=== PATIENT | female | born 1960 | race American Indian/Alaskan Native ===

== ENCOUNTER → 2016-10-16 | Outpatient (CLI) | payer BC ==
[2016-10-16 07:01] LABS: EKG EKG PERFORMED
[2016-10-16 07:08] LABS: CH 29.4; CHCM 32.2; HCT 39.9 % (34.0-46.0); HDW 2.63; HGB 12.7 gm/dL (11.4-16.0); MCH 29.1 pg (25.0-35.0); MCHC 31.8 g/dL (31.0-37.0); MCV 91.7 fL (80.0-100.0); Mean Platelet Volume 7.2; RBC 4.36 m/uL (3.80-5.40); RDW 14.1 % (11.5-15.5); WBC 7.3 k/uL (3.8-10.6)
[2016-10-16 07:25] LABS: ALT 42 U/L (9-52); AST 27 U/L (14-36); Alkaline Phosphatase 135 U/L (38-126); Anion Gap 11 mmol/L; Blood Urea Nitrogen 14 mg/dL (7-17); Calcium 9.5 mg/dL (8.4-10.2); Carbon Dioxide 27 mmol/L (22-30); Chloride 106 mmol/L (98-107); Cholesterol 194 mg/dL (<200); Glucose 109 mg/dL (74-99); HDL Cholesterol 39 mg/dL (40-60); Non-African American GFR(MDRD) >60 (>60 ml/min/1.73 sqM); Potassium 4.3 mmol/L (3.5-5.1); Sodium 144 mmol/L (137-145); Total Bilirubin 0.8 mg/dL (0.2-1.3); Total Protein 7.9 g/dL (6.3-8.2); Triglycerides 161 mg/dL (<150)
[2016-10-16 08:17] LABS: Hemoglobin A1C 5.6 % (4.2-6.1)
== END | disposition home or self-care (01) ==
LOC: LABWHC1 06:42
PROVIDERS: ATTEND Family Medicine
DX: Z00.00 Encounter for general adult medical examination without abnormal findings (principal)
CPT/HCPCS: 36415; 80053; 80061; 82306; 83036; 84439; 84443; 85027; 93005

== ENCOUNTER → 2016-10-18 | Outpatient (CLI) | payer BC ==
--- NOTE | 2016-10-18 16:13 | US ---
EXAMINATION TYPE: US kidneys/renal and bladder DATE OF EXAM: 10/18/2016 3:55 PM COMPARISON: NONE CLINICAL HISTORY: N28.1 Kidney Cyst. Cyst seen on CT EXAM MEASUREMENTS: Right Kidney: 10.5 x 4.3 x 5.0 cm Left Kidney: 9.9 x 5.0 x 5.0 cm TECHNOLOGIST IMPRESSION: Right Kidney: No hydronephrosis or masses seen Left Kidney: exophytic cyst measuring 1.0 x 0.9 x 1.4 cm This does not meet the criteria of a simple cyst. Bladder: wnl Bilateral Jets seen: Yes IMPRESSION: EXOPHYTIC, 1.4 CM CYST ARISING FROM THE LOWER POLE OF THE LEFT KIDNEY DOES NOT MEET THE REQUIREMENTS OF A SIMPLE CYST. FURTHER INTERROGATION WITH MRI WOULD BE SUGGESTED.
== END | disposition home or self-care (01) ==
LOC: RADUSWWP 15:31
PROVIDERS: ATTEND Family Medicine
DX: N28.1 Cyst of kidney, acquired (principal)
CPT/HCPCS: 76770

== ENCOUNTER → 2016-11-23 | Outpatient (CLI) | payer BC | LOC: LABWHC1 08:27 | PROVIDERS: ATTEND Orthopaedic Surgery | DX: M25.572 Pain in left ankle and joints of left foot (principal); M72.2 Plantar fascial fibromatosis | CPT/HCPCS: 36415; 82306; 85652; 86140 ==

== ENCOUNTER → 2016-11-27 | Outpatient (CLI) | payer BC ==
--- NOTE | 2016-11-28 11:02 | MM ---
Reason for exam: screening (asymptomatic). Last mammogram was performed 1 year ago. History: Patient is postmenopausal and has history of other cancer at age 30. Physical Findings: A clinical breast exam by your physician is recommended on an annual basis and results should be correlated with mammographic findings. MG 3D Screening Mammo W/Cad Bilateral CC and MLO view(s) were taken. Prior study comparison: November 27, 2015, bilateral MG 3d screening mammo w/cad. November 25, 2014, bilateral MG screening mammo w CAD. The breast tissue is almost entirely fat. There is no discrete abnormality. No significant changes when compared with prior studies. ASSESSMENT: Negative, BI-RAD 1 RECOMMENDATION: Routine screening mammogram of both breasts in 1 year.
== END | disposition home or self-care (01) ==
LOC: RADMAMWWP 09:13
PROVIDERS: ATTEND Family Medicine
DX: Z12.31 Encounter for screening mammogram for malignant neoplasm of breast (principal)
CPT/HCPCS: 77063; G0202

== ENCOUNTER → 2017-02-19 | Outpatient (CLI) | payer BC ==
[2017-02-19 11:51] LABS: Hemoglobin A1C 5.5 % (4.2-6.1)
== END | disposition home or self-care (01) ==
LOC: LABWHC1 06:38
PROVIDERS: ATTEND Family Medicine
DX: H35.00 Unspecified background retinopathy (principal)
CPT/HCPCS: 36415; 83036

== ENCOUNTER → 2017-03-05 | Outpatient (CLI) | payer BC ==
--- NOTE | 2017-03-19 07:19 | ENG ---
DATE OF SERVICE: VNG REPORT VNG INDICATIONS: A 56-year-old female with onset of vertigo 3 months ago, sudden and improving, coming in spells lasting 2 to 3 seconds at a time. Medications listed including alprazolam, atenolol, ibuprofen. VNG FINDINGS: Saccade shows intact peak velocities, accuracies, and latencies. Gaze with fixation shows no nystagmus in any of the directions of gaze including centrally with vision denied. Tracking shows no significant breakups. Opticokinetic nystagmus shows no asymmetry. Static position testing of 6 positions with eyes opened and then with vision denied shows no nystagmus. Jono-Hallpike maneuvers are negative bilaterally. Caloric testing shows bilateral weakness. Indeterminant. NOTE: Patient with reconstructive surgery left year 1982. VNG IMPRESSION: This VNG is limited due to bilateral weak caloric responses. Another test such as head thrust test or if available active and passive rotation testing is required to confirm presence of bilateral vestibular weakness. Other features of this VNG are unremarkable. There are no indications for central nervous system dysfunction. No electrodiagnostic evidence for benign positional vertigo on [place]-Hallpike maneuver today. No nystagmus encountered during testing.
== END | disposition home or self-care (01) ==
LOC: NEUROMAIN 08:34
PROVIDERS: ATTEND Otolaryngology
DX: R42 Dizziness and giddiness (principal)
CPT/HCPCS: 92537; 92540

== ENCOUNTER → 2017-04-02 | Outpatient (CLI) | payer BC ==
--- NOTE | 2017-04-02 15:09 | CT ---
EXAMINATION TYPE: CT iac wo/w con DATE OF EXAM: 04/02/2017 COMPARISON: NONE HISTORY: Dizziness x6 months. CT DLP: 300.0 mGycm Automated exposure control for dose reduction was used. CONTRAST: CT scan of the IACs is performed with IV Contrast, patient injected with 100 mL of Omnipaque 300. FINDINGS: The external auditory canals are patent bilaterally. Mastoid air cells show no evidence of abnormal opacification bilaterally. The middle ear ossicles are symmetric and unremarkable. There is no evidence of suspicious surrounding soft tissue density to suggest cholesteatoma. The scutum is preserved bilaterally. The cochlea and the semicircular canals are symmetric and unremarkable. Ves tibular aqueduct and internal carotid canal appear unremarkable. Temporomandibular joints are mainta ined bilaterally. Mild chronic mucosal thickening. IMPRESSION: No significant abnormality seen to account for patient's symptoms.
== END | disposition home or self-care (01) ==
LOC: RADCTMAIN 14:38
PROVIDERS: ATTEND Otolaryngology
DX: H93.19 Tinnitus, unspecified ear (principal); H91.90 Unspecified hearing loss, unspecified ear; R42 Dizziness and giddiness
CPT/HCPCS: 70482; Q9967

== ENCOUNTER → 2017-04-09 | Outpatient (CLI) | payer BC ==
[2017-04-09 08:55] LABS: Basophils # (A) 0.1 k/uL (0-0.2); Basophils % (A) 1 %; CH 29.1; CHCM 32.5; Eosinophils # (A) 0.3 k/uL (0-0.7); Eosinophils % (A) 4 %; HCT 41.1 % (34.0-46.0); HDW 2.64; HGB 13.7 gm/dL (11.4-16.0); Luc # (Auto) 0.17; Luc % (Auto) 2; Lymphocytes # (A) 1.8 k/uL (1.0-4.8); Lymphocytes % (A) 24 %; MCH 29.9 pg (25.0-35.0); MCHC 33.2 g/dL (31.0-37.0); MCV 89.9 fL (80.0-100.0); Mean Platelet Volume 6.8; Monocytes # (A) 0.5 k/uL (0-1.0); Monocytes % (A) 7 %; Neutrophils # (A) 4.7 k/uL (1.3-7.7); Neutrophils % (A) 62 %; RBC 4.58 m/uL (3.80-5.40); RDW 14.5 % (11.5-15.5); WBC 7.6 k/uL (3.8-10.6)
[2017-04-09 09:18] LABS: ALT 30 U/L (9-52); AST 25 U/L (14-36); Alkaline Phosphatase 143 U/L (38-126); Anion Gap 11 mmol/L; Blood Urea Nitrogen 15 mg/dL (7-17); Calcium 9.5 mg/dL (8.4-10.2); Carbon Dioxide 26 mmol/L (22-30); Chloride 104 mmol/L (98-107); Cholesterol 207 mg/dL (<200); Glucose 107 mg/dL (74-99); HDL Cholesterol 40 mg/dL (40-60); Non-African American GFR(MDRD) >60 (>60 ml/min/1.73 sqM); Potassium 4.6 mmol/L (3.5-5.1); Sodium 141 mmol/L (137-145); Total Protein 8.1 g/dL (6.3-8.2); Triglycerides 192 mg/dL (<150)
[2017-04-09 14:39] LABS: Hemoglobin A1C 5.8 % (4.2-6.1)
== END | disposition home or self-care (01) ==
LOC: LABWHC1 08:14
PROVIDERS: ATTEND Family Medicine
DX: E78.5 Hyperlipidemia, unspecified (principal); E55.9 Vitamin D deficiency, unspecified; I10 Essential (primary) hypertension; H35.00 Unspecified background retinopathy
CPT/HCPCS: 36415; 80053; 80061; 82306; 83036; 84439; 84443; 85025

== ENCOUNTER → 2017-04-25 | Outpatient (CLI) | payer BC ==
--- NOTE | 2017-04-25 07:40 | US ---
EXAMINATION TYPE: US abdomen comp/pelvis limited DATE OF EXAM: 04/25/2017 COMPARISON: US and CT CLINICAL HISTORY: Abd Pain R10.9. Generalized ABD pain EXAM MEASUREMENTS: Liver Length: 15.3 cm CBD: 0.4 cm Spleen: 9.4 cm Right Kidney: 10.7 x 4.8 x 4.4 cm Left Kidney: 11.4 x 4.7 x 4.5 cm Pancreas: wnl, tail obscured by overlying bowel gas Liver: Heterogeneous Gallbladder: Surgically absent CBD: wnl Spleen: wnl Right Kidney: wnl Left Kidney: Exophytic cyst, unchanged from previous= 1.1 x 0.9 x 1.0 cm Upper IVC: wnl Abd Aorta: wnl, no evidence of AAA Bladder: wnl Bilateral Jets Seen Yes Limited views of the pancreas are unremarkable. Liver is normal in size of biliary dilatation. The gallbladder is been removed. Distal common hepatic duct measures 4.4 mm. Spleen is normal in size. There is a 1.1 cm left ovarian cyst, unchanged from previous. The right kidney is normal. Visualized portions of aorta and IVC are normal. The bladder is unremarkable. Both ureteral jets are visualized. IMPRESSION: 1. STATUS POST CHOLECYSTECTOMY. 2. SIMPLE APPEARING LEFT RENAL CYST.
== END | disposition home or self-care (01) ==
LOC: RADUSWWP 06:54
PROVIDERS: ATTEND Family Medicine
DX: N28.1 Cyst of kidney, acquired (principal); Z90.49 Acquired absence of other specified parts of digestive tract
CPT/HCPCS: 76700; 76857

== ENCOUNTER → 2017-10-21 | Outpatient (CLI) | payer BC ==
--- NOTE | 2017-10-21 09:03 | CT ---
EXAMINATION TYPE: CT abdomen pelvis w con DATE OF EXAM: 10/21/2017 COMPARISON: NONE HISTORY: Epigastric pain CT DLP: 1199.50 mGycm CONTRAST: CT scan of the abdomen and pelvis is performed with Oral Contrast and with IV Contrast, patient injec stacey with 100 ml mL of Omnipaque 300. FINDINGS: LUNG BASES-: No visible nodule. No infiltrate. LIVER/GB: Cholecystectomy clips are in place. Mild hepatic steatosis noted. No space occupying hep atic lesion. Biliary tree is of normal caliber. PANCREAS: No inflammation. No distinct mass. SPLEEN: No splenic enlargement. No lesion seen. ADRENALS: Stable left fat-containing left adrenal nodule compatible with adenoma measuring 2.7 cm. No thickening. KIDNEYS/BLADDER: No hydronephrosis. No nephrolithiasis. Stable small exophytic lesion lower pole l eft kidney measuring 1.1 cm. Hounsfield unit measurement ranges between 3550 and. I cannot classify t his lesion is a cyst. Consider further evaluation with MRI. Cystic 1.2 cm lesion upper pole left kidn ey with Hounsfield unit measurement of approximately 20. Urinary bladder grossly unremarkable. BOWEL: Normal appendix. Normal bowel caliber. No inflammation. GENITAL ORGANS: No gross abnormality. LYMPH NODES: No greater than 1cm abdominal or pelvic lymph nodes are appreciated. AORTA: No significant abnormality. OSSEOUS STRUCTURES: Severe degenerative change lumbar spine.. OTHER: No significant additional abnormality is seen. IMPRESSION: 1. Stable small solid lesion lower pole left kidney. Consider further evaluation with MRI. 2. Mild hepatic steatosis. 3. Left adrenal adenoma.
== END | disposition home or self-care (01) ==
LOC: RADCTMAIN 07:09
PROVIDERS: ATTEND Internal Medicine Gastroenterology
DX: K76.0 Fatty (change of) liver, not elsewhere classified (principal); D35.02 Benign neoplasm of left adrenal gland; N28.9 Disorder of kidney and ureter, unspecified; R10.13 Epigastric pain
CPT/HCPCS: 74177; Q9967

== ENCOUNTER 2017-10-28 15:11 | Observation (INO) | payer BC ==
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
[2017-10-28] MEDS ORDERED: ASPIRIN 81 MG PO STA (16:28)
--- NOTE | 2017-10-28 17:33 | XR ---
EXAMINATION TYPE: XR chest 2V DATE OF EXAM: 10/28/2017 COMPARISON: 03/04/2016 HISTORY: Dysrhythmia difficulty breathing TECHNIQUE: Frontal and lateral views of the chest are obtained. FINDINGS: Heart is normal. There is no heart failure. There are chest leads. Costophrenic angles are clear. There is chronic density at the right cardiac border that is probably a large pericardial fat pad. Bony thorax is intact. IMPRESSION: No active cardiopulmonary disease. Normal heart. No change.
[2017-10-28 17:37] LABS: Basophils % (A) 0 %; Eosinophils # (A) 0.2 k/uL (0-0.7); Eosinophils % (A) 2 %; HCT 43.2 % (34.0-46.0); HGB 13.1 gm/dL (11.4-16.0); Hypochromasia Slight; Lymphocytes % (A) 23 %; MCH 28.9 pg (25.0-35.0); MCHC 30.4 g/dL (31.0-37.0); MCV 95.2 fL (80.0-100.0); Mean Platelet Volume 7.5; Monocytes # (A) 0.5 k/uL (0-1.0); Monocytes % (A) 6 %; Neutrophils # (A) 5.9 k/uL (1.3-7.7); Neutrophils % (A) 68 %; Platelet Count 275 k/uL (150-450); RBC 4.54 m/uL (3.80-5.40); RDW 14.9 % (11.5-15.5); WBC 8.7 k/uL (3.8-10.6)
[2017-10-28 17:46] LABS: Albumin 4.4 g/dL (3.5-5.0); Anion Gap 10 mmol/L; Carbon Dioxide 27 mmol/L (22-30); Chloride 104 mmol/L (98-107); Glucose 120 mg/dL (74-99); Potassium 4.5 mmol/L (3.5-5.1); Sodium 141 mmol/L (137-145); Total Protein 8.1 g/dL (6.3-8.2)
[2017-10-28 17:48] LABS: ALT 31 U/L (9-52); AST 36 U/L (14-36); Alkaline Phosphatase 134 U/L (38-126); Blood Urea Nitrogen 13 mg/dL (7-17); Calcium 9.6 mg/dL (8.4-10.2); Magnesium 2.2 mg/dL (1.6-2.3); Total Bilirubin 0.6 mg/dL (0.2-1.3)
[2017-10-28 17:56] LABS: Partial Thromboplastin Time 23.6 sec (22.0-30.0)
[2017-10-28] MEDS ORDERED: NALOXONE 0.4 MG/ML 1 ML VIAL IV PRN (19:18)
[2017-10-28 20:59] VITALS: BMI 34.0
[2017-10-28] MEDS ORDERED: ALPRAZolam 0.25 MG TAB PO PRN (21:22)
[2017-10-28] MEDS ORDERED: ACETAMINOPHEN TAB 500 MG TAB PO PRN (21:25)
[2017-10-28] MEDS ORDERED: HYDROmorphone 2 MG/ML 1 ML SYRINGE IM PRN (21:26)
[2017-10-28] MEDS ORDERED: ATENOLOL 25 MG TAB PO SCH (21:30)
[2017-10-29 07:48] VITALS: RESP 18; TEMP 98
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
--- NOTE | 2017-10-29 11:01 | ECHOF ---
Referral Reason:chest pain MEASUREMENTS -------- HEIGHT: 154.9 cm WEIGHT: 83.0 kg BP: IVSd: 1.1 cm (0.6 - 1.1) LVIDd: 3.3 cm (3.9 - 5.3) LVPWd: 1.1 cm (0.6 - 1.1) IVSs: 1.4 cm LVIDs: 1.8 cm LVPWs: 1.9 cm Ao Diam: 3.1 cm (2.0 - 3.7) AV Cusp: 2.2 cm (1.5 - 2.6) LA Diam: 3.2 cm (2.7 - 3.8) MV EXCURSION: 12.538 mm (> 18.000) MV EF SLOPE: 49 mm/s (70 - 150) EPSS: 0.7 cm MV E Saurabh: 0.90 m/s MV DecT: 279 ms MV A Saurabh: 0.87 m/s MV E/A Ratio: 1.03 RAP: 5.00 mmHg RVSP: 23.02 mmHg FINDINGS -------- Sinus rhythm. This was a technically good study. The left ventricular size is normal. Left ventricular wall thickness is normal. Overall left vent ricular systolic function is normal with, an EF between 55 - 60 %. The right ventricle is normal in size and function. The left atrium is normal in size. The right atrium is normal in size. The aortic valve is trileaflet, and appears structurally normal. No aortic stenosis or regurgitation. There is trace mitral regurgitation. Trace tricuspid regurgitation present. The right ventricular systolic pressure, as measured by Dopp ler, is 23.02mmHg. Pulmonic valve appears structurally normal. The aortic root size is normal. The pericardium is normal. CONCLUSIONS -------- 1. Sinus rhythm. 2. This was a technically good study. 3. The left ventricular size is normal. 4. Left ventricular wall thickness is normal. 5. Overall left ventricular systolic function is normal with, an EF between 55 - 60 %. 6. The right ventricle is normal in size and function. 7. The left atrium is normal in size. 8. The right atrium is normal in size. 9. The aortic valve is trileaflet, and appears structurally normal. No aortic stenosis or regurgitati on. 10. There is trace mitral regurgitation. 11. Trace tricuspid regurgitation present. 12. The right ventricular systolic pressure, as measured by Doppler, is 23.02mmHg. 13. Pulmonic valve appears structurally normal. 14. The aortic root size is normal. 15. The pericardium is normal. RETAIL SALES ADVISOR: Sallie Hernandez RDCS
--- NOTE | 2017-10-29 11:40 | ECHOS ---
STRESS ECHOCARDIOGRAM DATE OF SERVICE: 10/29/2017 INDICATION OF THE STUDY: Chest discomfort. MEDICATIONS: BASELINE HEART RATE: 73 BASELINE BLOOD PRESSURE: 144/79 MAXIMUM HEART RATE: 135 MAXIMUM BLOOD PRESSURE: 179/87 85% MPHR: 129 100% MPHR: 163 METS: 8.1 MAXIMUM STAGE REACHED: III TOTAL EXERCISE TIME: 6:54 CLINICAL INFORMATION: STRESS DATA: Pretesting physical examination showed a heart rate of 73, pressure is 144/79 mmHg. Baseline EKG showed sinus rhythm. The patient exercised on the treadmill according to Galo protocol for a total of 6 minutes and 54 seconds and achieved 8.1 METs. Max heart rate was 135, which is about 86% of maximum predicted heart rate. Maximum blood pressure was 179/87 mmHg. Clinically, the patient developed some shortness of breath with exertion. The EKG showed about [address]-segment depression during exercise and extended into recovery. ECHOCARDIOGRAM IMAGES: On echocardiogram images from parasternal long axis view, parasternal short axis view, apical 4 chamber view and apical 2 chamber view were obtained as a baseline images, at the peak of the heart rate as well as on recovery. The echocardiogram images showed good augmentation in the left ventricular systolic function without any evidence of wall motion abnormalities consistent with ischemia. CONCLUSION: 1. Good exercise capacity. 2. Mild EKG changes in response to exercise. 3. Normal echocardiogram in response to exercise. MMODL / IJN: [id number] /
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
[2017-10-29 11:47] VITALS: BP 136/59; PULSE 72
--- NOTE | 2017-10-29 14:08 | P.DS ---
Providers Date of admission: 10/28/17 19:18 Expected date of discharge: 10/29/17 Attending physician: Harsh Wagner Consults: 10/28/17 19:19 Consult Physician Routine Consulting Provider: Chava Marshall Consult Reason/Comments: Palpitations Do you want consulting provider notified?: Yes Primary care physician: Harsh Wagner [facility] Course: 57-year-old female who presented to the emergency room on 10/28/2017 with a chief complaint of palpitations. She states she was at home cleaning her bathroom and she began to feel a rapid fluttering sensation in her chest along with some mild chest pressure and shortness of breath. She states that she stopped cleaning and her chest pressure and shortness of breath subsided but she continued to experience palpitations. She also stated she had some lightheadedness and dizziness at that time. She denies nausea or vomiting. She called EMS and was transported to the hospital for further evaluation. The patient has a history of hypertension, cervical cancer, and anxiety. She is a former cigarette smoker and quit smoking in 2008. In the emergency room an EKG was completed revealing sinus mechanism. Chest x- ray was negative for an acute process. Laboratory data revealed hgb 13.1, plt 275, potassium 4.5, magnesium 2.2, creatinine 0.74. TSH 2.59. D-dimer was negative. Troponins were negative 3. school lunch monitor reveals bigeminy and trigeminy. She was admitted to the observation unit and consultations were placed to cardiology. Echocardiogram was completed revealing an ejection fraction of 55-60%, trace mitral regurgitation, and trace tricuspid regurgitation. Patient underwent stress test which was negative for ischemia. She was cleared for discharge from a cardiology standpoint. The patient was deemed stable for discharge. She is to follow up on an outpatient basis. Discharge diagnosis Chest pain, atypical, troponins negative 3, acute coronary event has been ruled out per cardiology Palpitations with bigeminy and trigeminy Essential hypertension Anxiety, unspecified Obesity: BMI 33.8 History of nicotine dependence, in remission, patient quit smoking cigarettes in 2008 Nurse practitioner note has been reviewed by physician. Signing provider agrees with the documented findings, assessment, and plan of care. Patient Condition at Discharge: Good Plan - Discharge Summary New Discharge Prescriptions: Continue Atenolol [Tenormin] 25 mg PO HS ALPRAZolam [Xanax] 0.25 mg PO BID PRN PRN Reason: Anxiety Cholecalciferol [Vitamin D3] 1,000 unit PO AC-SUPPER Clobetasol Propionate [Temovate 0.05% Cream] 1 applic TOPICAL BID Discharge Medication List Atenolol [Tenormin] 25 mg PO HS 03/15/14 [History] ALPRAZolam [Xanax] 0.25 mg PO BID PRN 09/03/17 [History] Cholecalciferol [Vitamin D3] 1,000 unit PO AC-SUPPER 09/03/17 [History] Clobetasol Propionate [Temovate 0.05% Cream] 1 applic TOPICAL BID 10/28/17 [ History] Follow up Appointment(s)/Referral(s): Chava Marshall MD [STAFF PHYSICIAN] - 3 Weeks Harsh Wagner DO [Primary Care Provider] - 1 Week Discharge Disposition: HOME SELF-CARE
[2017-10-30] MEDS ORDERED: PANTOPRAZOLE 40 MG TABLET PO SCH (07:30)
== END 2017-10-29 15:23 | disposition home or self-care (01) ==
LOC: EC 15:11 → 3OBS 19:18
PROVIDERS: ADMIT Family Medicine; ATTEND Family Medicine
DX: R07.89 Other chest pain (principal); R00.2 Palpitations; I10 Essential (primary) hypertension; F41.9 Anxiety disorder, unspecified; E66.9 Obesity, unspecified; Z68.33 Body mass index [BMI] 33.0-33.9, adult; Z87.891 Personal history of nicotine dependence; R00.8 Other abnormalities of heart beat; R42 Dizziness and giddiness; M79.622 Pain in left upper arm; R06.02 Shortness of breath; I49.9 Cardiac arrhythmia, unspecified; E78.5 Hyperlipidemia, unspecified; I08.1 Rheumatic disorders of both mitral and tricuspid valves; Z79.899 Other long term (current) drug therapy; Z85.41 Personal history of malignant neoplasm of cervix uteri; Z83.3 Family history of diabetes mellitus; Z82.61 Family history of arthritis; Z88.6 Allergy status to analgesic agent; Z88.8 Allergy status to other drugs, medicaments and biological substances; Z88.5 Allergy status to narcotic agent
CPT/HCPCS: 99285; 36415; 93005; 93017; 93306; 93350; 85379; 80053; 83735; 84443; 84484 ×2; 85025; 85610; 85730; 71046; G0378 ×2

== ENCOUNTER → 2017-11-24 | Outpatient (CLI) | payer BC ==
[2017-11-24 08:37] LABS: HCT 39.8 % (34.0-46.0); HGB 12.6 gm/dL (11.4-16.0); MCH 29.4 pg (25.0-35.0); MCHC 31.7 g/dL (31.0-37.0); MCV 92.7 fL (80.0-100.0); Mean Platelet Volume 6.8; Platelet Count 286 k/uL (150-450); RBC 4.29 m/uL (3.80-5.40); WBC 6.8 k/uL (3.8-10.6)
[2017-11-24 09:05] LABS: ALT 27 U/L (9-52); AST 23 U/L (14-36); Albumin 4.2 g/dL (3.5-5.0); Alkaline Phosphatase 139 U/L (38-126); Anion Gap 12 mmol/L; Blood Urea Nitrogen 15 mg/dL (7-17); Calcium 9.2 mg/dL (8.4-10.2); Carbon Dioxide 27 mmol/L (22-30); Chloride 105 mmol/L (98-107); Cholesterol 160 mg/dL (<200); Glucose 89 mg/dL (74-99); HDL Cholesterol 36 mg/dL (40-60); LDL Cholesterol,Calculated 90 mg/dL (0-99); Potassium 4.4 mmol/L (3.5-5.1); Sodium 144 mmol/L (137-145); Total Bilirubin 0.4 mg/dL (0.2-1.3); Total Protein 7.4 g/dL (6.3-8.2); Triglycerides 170 mg/dL (<150)
[2017-11-24 09:14] LABS: T4, Free (Free Thyroxine) 1.04 ng/dL (0.78-2.19)
[2017-11-24 18:47] LABS: Hemoglobin A1C 5.5 % (4.0-6.0)
== END | disposition home or self-care (01) ==
LOC: LABWHC1 08:11
PROVIDERS: ATTEND Family Medicine
DX: Z00.00 Encounter for general adult medical examination without abnormal findings (principal); I10 Essential (primary) hypertension; E78.5 Hyperlipidemia, unspecified; E55.9 Vitamin D deficiency, unspecified; H35.00 Unspecified background retinopathy
CPT/HCPCS: 36415; 80053; 80061; 82306; 83036; 84439; 84443; 85027

== ENCOUNTER 2017-12-05 16:58 | Emergency (ER) | payer BC ==
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
[2017-12-05 18:39] LABS: Basophils % (A) 0 %; Eosinophils % (A) 0 %; HCT 40.9 % (34.0-46.0); HGB 13.7 gm/dL (11.4-16.0); Lymphocytes # (A) 1.6 k/uL (1.0-4.8); Lymphocytes % (A) 17 %; MCH 29.7 pg (25.0-35.0); MCHC 33.4 g/dL (31.0-37.0); Mean Platelet Volume 6.7; Monocytes # (A) 0.5 k/uL (0-1.0); Monocytes % (A) 5 %; Neutrophils # (A) 7.3 k/uL (1.3-7.7); Neutrophils % (A) 77 %; Platelet Count 305 k/uL (150-450); RDW 14.1 % (11.5-15.5); WBC 9.5 k/uL (3.8-10.6)
--- NOTE | 2017-12-05 18:41 | XR ---
EXAMINATION TYPE: XR chest 2V DATE OF EXAM: 12/05/2017 COMPARISON: 10/28/2017 HISTORY: Tachycardia. Dizziness. TECHNIQUE: Frontal and lateral views of the chest are obtained. FINDINGS: Heart and mediastinum are within normal limits. Lungs are clear. Diaphragm is normal. Ther e are chest leads. Bony thorax is intact. IMPRESSION: Normal chest. Old right-sided healed rib fracture noted. No adverse change compared to o ld exam.
[2017-12-05 19:01] LABS: ALT 31 U/L (9-52); AST 24 U/L (14-36); Albumin 4.7 g/dL (3.5-5.0); Alkaline Phosphatase 169 U/L (38-126); Anion Gap 13 mmol/L; Blood Urea Nitrogen 16 mg/dL (7-17); Carbon Dioxide 27 mmol/L (22-30); Chloride 103 mmol/L (98-107); Glucose 110 mg/dL (74-99); Potassium 4.3 mmol/L (3.5-5.1); Sodium 143 mmol/L (137-145); Total Bilirubin 0.5 mg/dL (0.2-1.3); Total Protein 8.5 g/dL (6.3-8.2)
[2017-12-05 19:46] VITALS: TEMP 98
[2017-12-05 19:48] VITALS: BP 139/78; PULSE 68; RESP 20
== END 2017-12-05 19:46 | disposition home or self-care (01) ==
LOC: EC 16:58
DX: I49.3 Ventricular premature depolarization (principal); R06.02 Shortness of breath; R42 Dizziness and giddiness; I10 Essential (primary) hypertension; Z85.41 Personal history of malignant neoplasm of cervix uteri; Z87.891 Personal history of nicotine dependence; Z79.899 Other long term (current) drug therapy; Z79.52 Long term (current) use of systemic steroids; Z88.5 Allergy status to narcotic agent; Z88.8 Allergy status to other drugs, medicaments and biological substances; Z88.6 Allergy status to analgesic agent
CPT/HCPCS: 36415; 71046; 80053; 84484; 85025; 93005; 99285

== ENCOUNTER 2018-03-20 18:29 | Emergency (ER) | payer BC ==
[2018-03-20 18:52] VITALS: RESP 18
[2018-03-20] MEDS ORDERED: ASPIRIN 325 MG TAB PO STA (19:36)
[2018-03-20 20:06] LABS: Basophils # (A) 0.1 k/uL (0-0.2); Basophils % (A) 0 %; Eosinophils # (A) 0.2 k/uL (0-0.7); Eosinophils % (A) 2 %; HCT 39.1 % (34.0-46.0); HGB 12.6 gm/dL (11.4-16.0); Lymphocytes # (A) 1.9 k/uL (1.0-4.8); Lymphocytes % (A) 17 %; MCH 28.8 pg (25.0-35.0); MCHC 32.4 g/dL (31.0-37.0); Mean Platelet Volume 6.7; Monocytes # (A) 0.8 k/uL (0-1.0); Monocytes % (A) 7 %; Neutrophils # (A) 7.8 k/uL (1.3-7.7); Neutrophils % (A) 72 %; Platelet Count 262 k/uL (150-450); RBC 4.39 m/uL (3.80-5.40); RDW 14.5 % (11.5-15.5); WBC 10.8 k/uL (3.8-10.6)
--- NOTE | 2018-03-20 20:13 | XR ---
EXAMINATION TYPE: XR chest 2V DATE OF EXAM: 03/20/2018 COMPARISON: 12/05/2017 HISTORY: Short of breath TECHNIQUE: Frontal and lateral views of the chest are obtained. FINDINGS: Heart and mediastinum are normal. Lungs are clear. Diaphragm is normal. Bony thorax is int act. There are chest leads. IMPRESSION: Normal chest. No change.
[2018-03-20 20:14] LABS: Anion Gap 12 mmol/L; Blood Urea Nitrogen 16 mg/dL (7-17); Calcium 9.4 mg/dL (8.4-10.2); Carbon Dioxide 23 mmol/L (22-30); Chloride 107 mmol/L (98-107); Glucose 122 mg/dL (74-99); Potassium 3.9 mmol/L (3.5-5.1); Sodium 142 mmol/L (137-145)
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
[2018-03-20 21:22] VITALS: BP 126/60; PULSE 66; TEMP 97.4
== END 2018-03-20 21:22 | disposition home or self-care (01) ==
LOC: EC 18:29
DX: R00.2 Palpitations (principal); R06.02 Shortness of breath; I49.3 Ventricular premature depolarization; I10 Essential (primary) hypertension; Z85.41 Personal history of malignant neoplasm of cervix uteri; Z87.891 Personal history of nicotine dependence; Z79.52 Long term (current) use of systemic steroids; Z79.899 Other long term (current) drug therapy; Z88.5 Allergy status to narcotic agent; Z88.8 Allergy status to other drugs, medicaments and biological substances; Z88.6 Allergy status to analgesic agent
CPT/HCPCS: 36415; 71046; 80048; 83880; 84484; 85025; 85379; 93005; 99285

== ENCOUNTER → 2018-07-04 | Outpatient (CLI) | payer BC ==
[2018-07-04 09:14] LABS: HCT 40.1 % (34.0-46.0); HGB 13.2 gm/dL (11.4-16.0); MCH 29.8 pg (25.0-35.0); MCV 90.3 fL (80.0-100.0); Mean Platelet Volume 6.7; Platelet Count 291 k/uL (150-450); RBC 4.44 m/uL (3.80-5.40); RDW 14.6 % (11.5-15.5); WBC 7.6 k/uL (3.8-10.6)
[2018-07-04 09:35] LABS: ALT 25 U/L (9-52); AST 26 U/L (14-36); Albumin 4.3 g/dL (3.5-5.0); Alkaline Phosphatase 128 U/L (38-126); Anion Gap 9 mmol/L; Blood Urea Nitrogen 16 mg/dL (7-17); Calcium 9.4 mg/dL (8.4-10.2); Carbon Dioxide 29 mmol/L (22-30); Chloride 105 mmol/L (98-107); Cholesterol 218 mg/dL (<200); Glucose 99 mg/dL (74-99); HDL Cholesterol 41 mg/dL (40-60); LDL Cholesterol,Calculated 132 mg/dL (0-99); Potassium 4.3 mmol/L (3.5-5.1); Sodium 143 mmol/L (137-145); Total Bilirubin 0.6 mg/dL (0.2-1.3); Triglycerides 224 mg/dL (<150)
== END | disposition home or self-care (01) ==
LOC: LABWHC1 07:59
PROVIDERS: ATTEND Family Medicine
DX: I10 Essential (primary) hypertension (principal); E78.5 Hyperlipidemia, unspecified
CPT/HCPCS: 36415; 80053; 80061; 85027

== ENCOUNTER → 2018-07-29 | Outpatient (CLI) | payer BC ==
--- NOTE | 2018-07-29 13:49 | US ---
EXAMINATION TYPE: US carotid duplex BILAT DATE OF EXAM: 07/29/2018 COMPARISON: NONE CLINICAL HISTORY: I65.29 Carotid occlusion; lightheadedness EXAM MEASUREMENTS: RIGHT: Peak Systolic Velocity (PSV) cm/sec ----- Right CCA: 66.0 ----- Right ICA: 62.9 ----- Right ECA: 117.3 ICA/CCA ratio: 1.0 RIGHT: End Diastole cm/sec ----- Right CCA: 25.0 ----- Right ICA: 28.0 ----- Right ECA: 30.0 LEFT: Peak Systolic Velocity (PSV) cm/sec ----- Left CCA: 64.4 ----- Left ICA: 88.6 ----- Left ECA: 114.0 ICA/CCA ratio: 1.4 LEFT: End Diastole cm/sec ----- Left CCA: 22.6 ----- Left ICA: 35.8 ----- Left ECA: 28.4 VERTEBRALS (direction of flow): Right Vertebral: Antegrade Left Vertebral: Antegrade Rhythm: Normal IMPRESSION: Mild intimal wall changes noted at right carotid bifurcation and moderate intimal wall ch anges seen at left carotid bifurcation, but PSV is wnl bilaterally. Criteria for Assigning % of Stenosis / Diameter reduction (Estimation based on the indirect measurements of the internal carotid artery velocities (ICA PSV). 1. Normal (no stenosis)=ICA PSV < 125 cm/s: ratio < 2.0: ICA EDV<40 cm/s. 2. Less than 50% stenosis=ICA PSV < 125 cm/s: ratio < 2.0: ICA EDV<40 cm/s. 3. 50 to 69% stenosis=ICA PSV of 125 to 230 cm/s: ration 2.0 ? 4.0: ICA EDV 40-100 cm/s. 4. Greater than 70% stenosis to near occlusion= ICA PSV > 230 cm/s: ratio > 4.0: ICA EDV > 100 cm/s. 5. Near occlusion= ICA PSV velocities may be low or undetectable: variable ratio and ICA EDV. 6. Total occlusion=unable to detect flow.
== END | disposition home or self-care (01) ==
LOC: RADUSWWP 12:08
PROVIDERS: ATTEND Family Medicine
DX: R93.1 Abnormal findings on diagnostic imaging of heart and coronary circulation (principal)
CPT/HCPCS: 93880

== ENCOUNTER → 2019-01-04 | Outpatient (CLI) | payer BC ==
[2019-01-04 08:03] LABS: Basophils % (A) 1 %; Eosinophils # (A) 0.4 k/uL (0-0.7); Eosinophils % (A) 6 %; HCT 40.3 % (34.0-46.0); HGB 12.8 gm/dL (11.4-16.0); Lymphocytes # (A) 1.6 k/uL (1.0-4.8); Lymphocytes % (A) 25 %; MCH 28.5 pg (25.0-35.0); MCHC 31.7 g/dL (31.0-37.0); MCV 89.8 fL (80.0-100.0); Mean Platelet Volume 6.3; Monocytes # (A) 0.5 k/uL (0-1.0); Monocytes % (A) 7 %; Neutrophils # (A) 3.8 k/uL (1.3-7.7); Neutrophils % (A) 60 %; Platelet Count 258 k/uL (150-450); RBC 4.49 m/uL (3.80-5.40); RDW 14.3 % (11.5-15.5); WBC 6.4 k/uL (3.8-10.6)
[2019-01-04 16:56] LABS: T4, Free (Free Thyroxine) 1.1 ng/dL (0.80-1.80)
[2019-01-04 17:17] LABS: Hemoglobin A1C 5.8 % (4.0-6.0)
[2019-01-04 17:30] LABS: Albumin 4.4 g/dL (3.80-4.90); Albumin/Globulin Ratio 1.52 (1.60-3.17); Anion Gap 6.1 mmol/L (4.00-12.00); Calcium 9.6 mg/dL (8.7-10.3); Carbon Dioxide 29.9 mmol/L (21.6-31.8); Globulin 2.9 g/dL (1.6-3.3); Potassium 4.3 mmol/L (3.5-5.5); Total Bilirubin 0.8 mg/dL (0.3-1.2); Total Protein 7.3 g/dL (6.2-8.2)
== END | disposition home or self-care (01) ==
LOC: LABWHC1 07:18
PROVIDERS: ATTEND Family Medicine
DX: Z00.00 Encounter for general adult medical examination without abnormal findings (principal); E78.5 Hyperlipidemia, unspecified; I10 Essential (primary) hypertension; E55.9 Vitamin D deficiency, unspecified; R73.9 Hyperglycemia, unspecified
CPT/HCPCS: 36415; 80053; 80061; 82306; 83036; 84439; 84443; 85025

== ENCOUNTER → 2019-01-21 | Outpatient (CLI) | payer BC ==
--- NOTE | 2019-01-21 16:51 | US ---
EXAMINATION TYPE: US kidneys/renal and bladder DATE OF EXAM: 01/21/2019 COMPARISON: Correlation CT 10/21/2017 CLINICAL HISTORY: 58-year-old female N28.1 KIDNEY CYST. TECHNIQUE: Multiple sonographic images of the kidneys and bladder are obtained. FINDINGS: EXAM MEASUREMENTS: Right Kidney: 10.9 x 5.1 x 4.8 cm Left Kidney: 10.9 x 5.2 x 5.5 cm Post Void Residual Volume: Not performed Right Kidney: No hydronephrosis. Left Kidney: Hypoechoic area seen superiorly measurin.0 x 2.1 x 1.2 cm. Isoechoic area seen later al/inferiorly which may be adjacent to the left kidney measuring 2.0 x 1.7 x 0.9 cm (?exophytic). The patient's 10/21/2017 CT demonstrated a cortical lesion measuring 1.3 cm at the upper to midpole and a 1.2 cm cortical lesion at the mid to lower pole. Bladder: Appears wnl Bilateral Jets seen: Yes IMPRESSION: 1. No hydronephrosis. 2. Follow-up CT can be performed to reassess the left renal lesions. By ultrasound, they seem to hollie ure larger than measurements on prior CT (currently measuring up to 2.1 cm versus 1.3 cm, previously) . Enlarging complicated cysts or small solid masses are possible.
== END | disposition home or self-care (01) ==
LOC: RADUSWWP 13:03
PROVIDERS: ATTEND Family Medicine
DX: N28.1 Cyst of kidney, acquired (principal)
CPT/HCPCS: 76770

== ENCOUNTER → 2019-02-04 | Outpatient (CLI) | payer BC ==
--- NOTE | 2019-02-04 12:02 | CT ---
EXAMINATION TYPE: CT abdomen pelvis wo/w con DATE OF EXAM: 02/04/2019 COMPARISON: 10/21/2017 HISTORY: 58-year-old female Renal lesions TECHNIQUE: Contiguous axial scanning of the abdomen and pelvis before and after administration of 100 ml Isovue 300 IV contrast. Delayed images through the kidneys and coronal/sagittal reconstructions performed. CT DLP: 1575.2 mGycm Automated exposure control for dose reduction was used. FINDINGS: Heart normal size without pericardial effusion. Strandy atelectasis posterior left base and basilar r ight middle lobe/inferior lingula. No pleural effusion. No focal liver lesion or biliary ductal dilatation. Portal venous system is patent. Cholecystectomy clips. Right adrenal gland, spleen, and pancreas appear within normal limits. Stable prominent gastrohepatic ligament lymph node measuring 1 cm. Stable 2.5 cm low-density nodule of the left adrenal gland. 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 Within the right kidney, there is a 7 mm peripheral hypodensity at the midpole, minimally larger from 10/21/2017 where it measures 5 mm. A tiny cortical cyst is suggested. On the left, there is a 1.3 cm cortical cyst lateral upper pole, minimally larger from 1.1 cm, previo usly. Also, in the mid to lower pole, there is a partially exophytic 1.4 cm intermediate attenuation lesion measuring 1.4 cm. This is minimally larger from 10/21/2017 where it measured 1.[address] and delayed kidney images show no significant change in density. Findings suggesting pronation or hemorrhagic cyst. No suspicious renal lesion. No nephrolithiasis or hydronephrosis. No dilated small bowel, free fluid, or free air. Tiny fatty umbilical hernia. Mild to moderate atherosclerotic calcifications abdominal aorta. Oral contrast progressed to the proximal sigmoid. No pericolonic inflammatory change. Bladder urine distended. Pelvic phlebolith. Uterus surgically absent. No adnexal mass. Prominent pelvic lymph nodes measuring up to 9 mm on the right and left, stable on the left, minimall y larger on the right previously measuring 7 mm. Findings suggest a benign reactive/post inflammatory etiology. Bones: Degenerative changes of the hips. Facet arthropathy lower lumbar spine. Bilateral L5 pars def ects with grade 1, nearly grade 2 anterolisthesis at L5-S1. Additional grade 1 retrolisthesis L3-L4. Chronic superior endplate deformity of T12. IMPRESSION: 1. SMALL CORTICAL LESIONS IN THE KIDNEYS, ONE ON THE RIGHT AND 2 ON THE LEFT. THESE ARE STABLE TO MIN IMALLY LARGER FROM 10/21/2017, LARGEST MEASURING 1.4 CM. THESE ARE MOST SUGGESTIVE OF BENIGN CYSTS. TH E CYST IN THE LEFT MID TO LOWER POLE IS A PROTEINACEOUS/HEMORRHAGIC CYST. NO SUSPICIOUS RENAL LESION. 2. 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 3. GRADE 1, NEARLY GRADE 2 ANTEROLISTHESIS AT L5-S1 SECONDARY TO BILATERAL L5 PARS DEFECTS.
== END | disposition home or self-care (01) ==
LOC: RADCTMAIN 09:02
PROVIDERS: ATTEND Family Medicine
DX: N28.1 Cyst of kidney, acquired (principal); D35.02 Benign neoplasm of left adrenal gland; Z88.5 Allergy status to narcotic agent; Z88.6 Allergy status to analgesic agent
CPT/HCPCS: 74178; Q9967 ×2

== ENCOUNTER → 2019-08-18 | Outpatient (CLI) | payer BC ==
--- NOTE | 2019-08-18 08:28 | CT ---
EXAMINATION TYPE: CT lumbar spine wo con DATE OF EXAM: 08/18/2019 7:47 AM COMPARISON: CT lumbar spine January 05, 2016 HISTORY: Low back pain CT DLP: 914.00 mGycm Automated exposure control for dose reduction was used. Unenhanced CT of the lumbar spine was performed. Bone and soft tissue window settings are submitted as well as coronal and sagittal reconstructions. There are 5 lumbar type vertebra redemonstrated. There there is redemonstration of bilateral pars def ects L5 level with stable grade 1 anterolisthesis L5 on S1. There is new moderate height loss superio r L3 endplate with sclerosis. There is stable minimal height loss superior L2 endplate. There is more severe height loss involving superior T12 vertebra with mild anterior wedging with some sclerosis meehan ggesting subacute or chronic in age. This has progressed from prior study. There is persistent mode rate to advanced disc space narrowing with vacuum disc phenomenon posteriorly at L5-S1 level. Fairly moderate multilevel anterior and lateral spurring is seen with progression from prior CT. No new lar ge posterior disc herniations are seen on sagittal images. Review of axial images redemonstrates posterior disc bulges at L2-L3 and L3-L4 levels mildly effacing anterior thecal sac with findings most pronounced at L3-L4 level noted axial image 40. There is advanced neural foraminal narrowing bilaterally at L5-S1 level due to spondylolisthesis. [place] ateral L5 encroachment is thought redemonstrated. Slight progression in size in hyperdense left lateral renal round lesion partially exophytic now hollie uring 1.3 cm axial image 38 still favoring proteinaceous cyst. This did not show enhancement on multi phase CT abdomen study February 04, 2019 to suggest solid mass. Cholecystectomy clips are redemonstrated. IMPRESSION: There are bilateral pars defects with spondylolisthesis at lumbosacral junction redemons trated. Multilevel degenerative changes again seen most prominent L5-S1 level as detailed above. New areas of compression type fracture deformity since 2016 CT T12 and L3 vertebra are noted though felt subacute or chronic in age. T12 findings are more severe but are noted chronic as were present on Sep abdominal pelvic CT without significant change.
== END | disposition home or self-care (01) ==
LOC: RADCTMAIN 07:30
PROVIDERS: ATTEND Physical Medicine & Rehabilitation
DX: M43.17 Spondylolisthesis, lumbosacral region (principal); M47.817 Spondylosis without myelopathy or radiculopathy, lumbosacral region; M54.16 Radiculopathy, lumbar region; M53.87 Other specified dorsopathies, lumbosacral region; S32.038A Other fracture of third lumbar vertebra, initial encounter for closed fracture
CPT/HCPCS: 72131

== ENCOUNTER → 2019-10-20 | Outpatient (CLI) | payer BC ==
[2019-10-20 13:22] LABS: African American GFR (CKD) 81.1 (60.0-200.0); Albumin 4.5 g/dL (3.80-4.90); Albumin/Globulin Ratio 1.61 (1.60-3.17); Anion Gap 7.6 mmol/L (4.00-12.00); BUN/Creat Ratio 17.78 Ratio (12.00-20.00); Calcium 10.1 mg/dL (8.7-10.3); Carbon Dioxide 29.4 mmol/L (21.6-31.8); Chol/HDL Ratio 4.28; Globulin 2.8 g/dL (1.6-3.3); LDL Cholesterol,Calculated 115.2 mg/dL (0.0-131.0); Potassium 4.6 mmol/L (3.5-5.5); Total Bilirubin 0.6 mg/dL (0.3-1.2); Total Protein 7.3 g/dL (6.2-8.2); VLDL Calculation 35.8 mg/dL (5.00-40.00)
== END | disposition home or self-care (01) ==
LOC: LABWHC1 06:37
PROVIDERS: ATTEND Family Medicine
DX: E78.5 Hyperlipidemia, unspecified (principal)
CPT/HCPCS: 36415; 80053; 80061

== ENCOUNTER → 2022-06-12 | Outpatient (CLI) | payer BC ==
--- NOTE | 2022-06-12 08:46 | CT ---
EXAMINATION TYPE: CT lumbar spine wo con DATE OF EXAM: 06/12/2022 COMPARISON: Comparisons are unavailable at this time HISTORY: Low back pain CT DLP: 87.3 mGycm CONTRAST: None TECHNIQUE: CT of the lumbar spine is performed on a spiral scan at 3 mm thick sections. Reconstructed images are performed in the coronal and sagittal planes. FINDINGS: There is a grade 1 spondylolisthesis of L5 anteriorly on S1. Superior endplate changes are noted at L 5, L3 mildly at L2 and at T12. Some inferior endplate changes present L4 and to a minimal degree L3. T12-L1: Minimal disc bulge is present with anterior thecal sac contact. No AP spinal canal stenosis p resent. Neural foramen are patent. L1-L2: Mild disc bulge is present with anterior thecal sac compression. No spinal canal stenosis or n eural foraminal stenosis is present. L2-L3: Mild disc bulge is present with intrathecal sac flattening. No AP spinal canal stenosis presen t. Neural foramen are patent. L3-L4: Mild disc bulge has anterior thecal sac flattening. Mild facet hypertrophy is present. There i s moderate bilateral foraminal narrowing. L4-L5: Minimal disc bulge is present within the intrathecal sac contact. No spinal canal stenosis pre sent. There is spondylolysis of L5. There is increased AP spinal canal diameter. Facet hypertrophy is present with some lateral canal narrowing. L5-S1: Spondylolysis is present. No disc bulge is evident. No spinal canal stenosis is present. Sever e bilateral foraminal stenosis is present. IMPRESSION: 1. Grade 1 spondylolisthesis of L5 anterior on S1 with L5 spondylolysis. Severe bilateral foraminal stenosis is present. No sac AP spinal canal stenosis present. 2. Mild lateral canal narrowing due to facet hypertrophy L4-5. 3. Multilevel mild disc bulges without stenosis. Endplate changes are discussed above, Greatest along the superior endplates of T12 and L3.
== END | disposition home or self-care (01) ==
LOC: RADCTMAIN 06:56
PROVIDERS: ATTEND Orthopaedic Surgery Orthopaedic Surgery of the Spine
DX: M54.59 Other low back pain (principal); M43.16 Spondylolisthesis, lumbar region; M51.36 Other intervertebral disc degeneration, lumbar region; M48.062 Spinal stenosis, lumbar region with neurogenic claudication; S32.030D Wedge compression fracture of third lumbar vertebra, subsequent encounter for fracture with routine healing; M16.11 Unilateral primary osteoarthritis, right hip; M16.12 Unilateral primary osteoarthritis, left hip; X58.XXXD Exposure to other specified factors, subsequent encounter
CPT/HCPCS: 72131

== ENCOUNTER → 2022-10-04 | Outpatient (CLI) | payer BC ==
--- NOTE | 2022-10-04 08:36 | XR ---
EXAMINATION TYPE: XR chest 2V DATE OF EXAM: 10/04/2022 8:20 AM COMPARISON: Chest radiographs from 03/20/2018. TECHNIQUE: XR chest 2V Frontal and lateral views of the chest. CLINICAL INDICATION:Female, 62 years old with history of PRE SURG TESTING; FINDINGS: Lungs/Pleura: There is no evidence of pleural effusion, focal consolidation, or pneumothorax. Pulmonary vascularity: Unremarkable. Heart/mediastinum: Cardiomediastinal silhouette is unremarkable. Musculoskeletal: No acute osseous pathology. Multilevel degenerative disc disease. Other: Surgical clips in the upper abdomen. IMPRESSION: No acute cardiopulmonary disease/process.
[2022-10-04 09:08] LABS: Partial Thromboplastin Time 25.6 sec (22.0-30.0); Prothrombin Time 10.5 sec (9.0-12.0)
[2022-10-04 15:24] LABS: Basophils # (A) 0.04 X 10*3/uL (0.00-0.10); Basophils % (A) 0.5 %; Eosinophils # (A) 0.21 X 10*3/uL (0.04-0.35); Eosinophils % (A) 2.6 %; HCT 40.5 % (37.2-46.3); HGB 12.5 g/dL (12.0-15.0); Immature Grans, Automated 0.4 %; Lymphocytes # (A) 1.89 X 10*3/uL (0.90-5.00); Lymphocytes % (A) 23.6 %; MCH 29.6 pg (27.0-32.0); MCHC 30.9 g/dL (32.0-37.0); MCV 95.7 fL (80.0-97.0); Mean Platelet Volume 10.6 fL (9.5-12.2); Monocytes # (A) 0.71 X 10*3/uL (0.20-1.00); Monocytes % (A) 8.9 %; NRBC Per 100 WBC 0 /100 WBCS (0.0-0.0); Neutrophils # (A) 5.14 X 10*3/uL (1.80-7.70); Platelet Count 242 X 10*3/uL (140-440); RBC 4.23 X 10*6/uL (4.10-5.20); WBC 8.02 X 10*3/uL (4.50-10.00)
[2022-10-04 15:45] LABS: African American GFR (CKD) 107.6 (60.0-200.0); Anion Gap 10.2 mmol/L (10.00-18.00); BUN/Creat Ratio 20.86 Ratio (12.00-20.00); Blood Urea Nitrogen 14.6 mg/dL (9.0-27.0); Calcium 9.5 mg/dL (8.7-10.3); Carbon Dioxide 24.8 mmol/L (20.0-27.5); Non-African American GFR(CKD) 92.9 (60.0-200.0)
[2022-10-04 17:43] LABS: Appearance,Urine Clear (Clear); Bilirubin,Urine Negative (Negative); Blood,Urine Negative (Negative); Color,Urine Yellow (Yellow); Ketones,Urine Negative (Negative); Nitrite,Urine Negative (Negative); PH, Urine 6.5 (5.0-8.0); Specific Gravity,Urine 1.011 (1.001-1.030); Urobilinogen,Urine 0.2 (0.2,1.0)
[2022-10-04 17:48] LABS: Bacteria,Urine None Seen /HPF (None Seen)
== END | disposition home or self-care (01) ==
LOC: LABPAT 07:16
PROVIDERS: ATTEND Orthopaedic Surgery Orthopaedic Surgery of the Spine
DX: Z01.812 Encounter for preprocedural laboratory examination (principal); M48.00 Spinal stenosis, site unspecified; M43.16 Spondylolisthesis, lumbar region
CPT/HCPCS: 36415; 71046; 80048; 81001; 85025; 85610; 85730; 87070; 93005

== ENCOUNTER 2022-10-30 06:33 | Day surgery (SDC) | payer BC ==
[2022-10-24 14:13] VITALS: BMI 33.5
[~2022-10-30 06:33] MED LIST: ceFAZolin 1,000 MG in SODIUM CHLORIDE 0.9% IRRIGATIO 1,000 ML IRRIGATION PRN
[2022-10-30] MEDS ORDERED: HYDROmorphone 0.5 MG/0.5 ML SYRINGE IVP PRN ×2 (07:21→11:37)
[2022-10-30] MEDS ORDERED: ONDANSETRON 4 MG/2 ML VIAL IVP ONE (07:21)
[2022-10-30] MEDS ORDERED: DEXAMETHASONE SOD PHOSPHATE 4 MG/ML 1 ML VIAL IV ONE (07:21)
[2022-10-30] MEDS ORDERED: MIDAZOLAM 2 MG/2 ML VIAL IV PRN (07:21)
[2022-10-30] MEDS: LACTATED RINGERS 1,000 ML IV SCH (07:32)
[2022-10-30] MEDS ORDERED: LIDOCAINE 1% (10MG/ML) FOR IV START INTRADERMA ONE (07:32)
[2022-10-30] MEDS ORDERED: SCOPOLAMINE 1 MG/72 HR PATCH TRANSDERM ONE (07:33)
[2022-10-30] MEDS ORDERED: GELATIN SPONGE,ABSORB (LARGE) 1 EACH SPONGE TOPICAL ONE (07:55)
[2022-10-30] MEDS ORDERED: THROMBIN (BOVINE) 5,000 UNIT VIAL TOPICAL ONE (07:55)
[2022-10-30] MEDS ORDERED: LIDOCAINE 0.5%-EPI 1:200,000 50 ML VIAL SQ ONE (07:55)
[2022-10-30] MEDS ORDERED: LACTATED RINGERS 1,000 ML IV ONE ×2 (09:34→11:49)
[2022-10-30] MEDS ORDERED: HYDROcodone/APAP 5-325MG 1 EACH TAB PO PRN (11:37)
[2022-10-30] MEDS ORDERED: HYDROmorphone 1 MG/ML 1 ML SYRINGE IVP PRN (11:37)
[2022-10-30] MEDS ORDERED: MAGNESIUM HYDROXIDE 2,400 MG/10 ML CUP PO PRN (11:37)
[2022-10-30] MEDS ORDERED: ACETAMINOPHEN TAB 500 MG TAB PO PRN (11:37)
[2022-10-30] MEDS ORDERED: ONDANSETRON 4 MG/2 ML VIAL IVP PRN (11:37)
[2022-10-30] MEDS ORDERED: bisacodyL 10 MG SUPP RECTAL PRN (11:37)
[2022-10-30] MEDS ORDERED: BENZOCAINE/MENTHOL LOZENG 1 EACH LOZENGE MUCOUS MEM PRN (11:37)
[2022-10-30] MEDS ORDERED: CYCLOBENZAPRINE 10 MG TAB PO PRN (11:37)
--- NOTE | 2022-10-30 11:46 | P.OP ---
Date of Procedure: 10/30/22 Preoperative Diagnosis: Grade 3 spondylolisthesis L5-S1, spinal stenosis L4 5 L5-S1, degenerative disc disease, facet arthrosis, low back pain, lower extremity radiculopathy Postoperative Diagnosis: Grade 3 spondylolisthesis L5-S1, spinal stenosis L4 5 L5-S1, degenerative disc disease, facet arthrosis, low back pain, lower extremity radiculopathy Anesthesia: GETA Pathology: none sent Condition: stable Disposition: PACU Description of Procedure: DESCRIPTION OF PROCEDURE(S): BRIEF OPERATIVE NOTE Preoperative Diagnosis: Grade 3 spondylolisthesis L5-S1, spinal stenosis L4 5 L5-S1, degenerative disc disease, facet arthrosis, low back pain, lower extremity radiculopathy Postoperative Diagnosis: Grade 3 spondylolisthesis L5-S1, spinal stenosis L4 5 L5-S1, degenerative disc disease, facet arthrosis, low back pain, lower extremity radiculopathy Procedure: Laminectomy and decompression L4 5 L5-S1 Computer CT navigation aided Minimally invasive Posterior lateral decompression and fusion L4 5 L5-S1 Minimally invasive Transforaminal lumbar interbody fusion for a 360 fusion L4 5 Discectomy for decompression L4 5 Placement of interbody graft L4 5 Use of computer navigation for fusion L4 5 L5-S1 Local autogenous bone grafting Aspiration of bone marrow from the vertebral body pedicle at L4 on the right Use of bone graft extenders Surgeon: Dr. Mcpherson [place] Manager: Butch WALTER who is present throughout the entire the case persistence during positioning, dissection, exposure, visualization, and all crucial elements of the case as well as closure. Anesthesia: General anesthesia per Dr. Camejo Estimated blood loss: Approximately 200 mL Complications: None apparent Components implanted: K2M minimally invasive [place] pedicle screw system withscrews measuring 6.5 mm in diameter to rods one [place] interbody cage at L4 5 with 10 mL of osteo amp bio4 bone graft substitute and 30 mL of the BX bone fibers to supplement the local autogenous bone graft and bone marrow aspirate Disposition: To recovery room in good stable condition. OPERATIVE INDICATIONS The patient has had severe issues at their lower extremity in her lower back over the past several years with significant worsening over the past several months. She was found have a dynamic spondylolisthesis which had worsened over the years now approaching a grade 3 listhesis at L5-S1 with significant spinal stenosis L4 5 and L5-S1. Over the past few months the patient had pain at their back and their lower extremities. The patient is having severe radicular symptoms at their lower extremity with weakness. The patient is having significant pain in their back. They are unable to obtain any comfort. She is having worsening of her symptoms despite aggressive conservative care. Her symptoms correlated well with her imaging findings. We did aggressive conservative treatment with medications therapy and interventional pain management however thery were not having any relief. The patient also showed evidence of a listhesis with dynamic instability. The patient has been through conservative treatment. We discussed various treatment options including surgery, and the patient wishes to proceed with surgery We discussed the risk, patient's alternatives and benefits of surgery including but not limited to, risk of bleeding risk of infection, risk of need for further surgery, risk of decreased, loss of motion, muscle function, malunion nonunion, hardware failure, nerve damage, paralysis, heart attack, blindness and . They understood issues with the current pandemic and the possibility of exposure. OPERATIVE SUMMARY After discussing all the risks, patient alternatives and benefits at length, the patient elected to proceed with surgical intervention, signed informed consent, and presented for their procedure. The patient was seen and examined in the preoperative holding area and the surgical site was marked. The patient was given antibiotics and brought to the operating room. The patient was sedated and intubated by anesthesia in standard fashion. The patient was positioned on to the operating room table in a prone position on the appropriate frame which was well-padded and well molded. We were careful to pad any bony prominences and pressure points. We were careful to maintain the patient's cervical spine and good neutral alignment and position throughout. The patient was prepped and draped in a normal standard fashion. An appropriate timeout and keystone protocol performed. We were able to proceed with the surgery. The local wound area was infiltrated with local anesthetic. Over the right iliac crest I was able to make small stab incisions and establish a guidepin screw fixation to the iliac crest 2. I was able place the computer referencing device over the guidepins to establish an appropriate reference point for the Ziem CT navigation. We then were able to place patient in an appropriate drape and do a navigation spin for visualization and 3-D reconstruction of the lumbar spine. I was able utilize C-arm guidance and navigation to establish appropriate position over the pedicles bilaterally at the appropriate levels at L4 5 and L5-S1. With the appropriate levels confirmed was able to make small incisions over the appropriate pedicle sites bilaterally. Utilizing the computer navigation device I was able to establish bony landmarks at the right iliac crest for a bony reference point for the navigation device. I was able to establish a Jamshidi needle over the lateral aspect of the pedicle and advanced the trocar into the pedicle being careful not to breech superiorly inferiorly medially or laterally using computer navigation device. Position was confirmed regularly with AP and lateral images on C-arm and with the computer navigation device at the appropriate levels bilaterally. I was able to establish the trocar into the pedicle appropriately into the posterior aspect of the vertebral body bilaterally at the appropriate levels. This was done at each of the pedicle positions and each of the vertebrae. At the superior vertebrae I was able to take approximately 25 mL of bone aspiration for use later in the case to supplement the allograft and autograft bone. I was able place the guidewire into the trocar and into the vertebral body appropriately under C-arm guidance. Dissection was taken down over the wire to the appropriate starting position for the screw placed. The appropriate length screw was chosen, threaded over the guidewire and screwed appropriately into the pedicle and vertebral body under C-arm guidance in excellent alignment and position with good bony purchase. Though her bone was somewhat relatively soft I felt we had good purchase with each screw. This is done at each of the screw sites at the appropriate levels at L4-L5 and S1. With the screws intact I extended the incision to connect the screw hole sites on the most symptomatic side on the left. I dissected down to establish access over the pars and lamina to the base of the spinous process. I was able to expose the facet joint. The capsule the facet was taken down and showed some facet arthrosis at the joint. I was able to use a combination of curettes and Kerrison rongeurs and a high-speed drill to take down the facet joint and do a facetectomy. This was able to be done at L4 5. I was able get excellent foraminal decompression and central decompression with undermining across midline to perform a laminectomy centrally and contralaterally. As able get good central decompression. The ligamentum flavum was taken down to further d ecompress centrally and at bilateral neural foramen. I was able to expose the disc space and visualize the traversing nerve root. Note was made of some disc protrusion and disc herniation that was abutting the traversing nerve root at the level causing further compression of the nerve root. I was able to establish a annulotomy at the appropriate level protecting soft tissue and neural structures. Note was made of some severe disc desiccation at the disc. I performed a complete discectomy with accommodation of curettes and rasps and scrapers. I was able get good endplate preparation at the disc space. I sized for the appropriate size interbody spacer protecting the soft tissue and neural structures. The wound was copiously irrigated and suctioned dry. There is no evidence of any dural tear or leak. I was able to pack the disc space with local autogenous bone graft as well as a small amount of bone graft which was also placed into the interbody cage itself. Protecting the soft tissue structures and neural structures I was able place the interbody cage in good alignment and good position with good fit and fill at the interbody space. Position was confirmed with C-arm guidance. At L5-S1 I dissected down similarly and remove the facet joint on left. I also did decompression of the right side. I was able to visualize the listhesis at L5 S1 which had very minimal mobility. The exiting nerve root was stripped Brennen across the listhesis and there was no angle in order to access the disc space itself. I did not feel that I could safely retract the nerve root to access the disc space at L5-S1 and so I chose not to proceed with the interbody procedure at L5-S1. I was able to dissect out and decorticate the transverse processes and sacral ala bilaterally. I was able to remove the majority of the Rubio fragment at L5 for decompression. Good hemostasis maintained. There is no evidence of any dural tear or leak. The wound was irrigated and suctioned dry. With the hardware intact, intraoperative C-arm imaging was again taken which showed good alignment and position of the hardware at the appropriate levels. We were then able to measure, contour and place the rods and appropriate hardware bilaterally at L4-L5 and S1. I was able to get some reduction of the listhesis at L5-S1. I was able to place capcrews, tighten them down, and torque them with the torque screwdriver appropriately. With this intact I was able to place the local autogenous bone graft with additional bone graft enhancer as necessary into the posterior lateral gutters over the decorticated transverse processes and facet joints on the contralateral side. The remainder of the bone graft was placed over the facet joint on the contralateral side after taking down the facet joint capsule. With the bone graft intact, a stable construct, and good decompression at the appropriate levels, we were able to proceed with closure. Good hemostasis was maintained. There is no evidence of dural tear or leak. The fascia was closed for a watertight closure. he subcuticular tissue was closed with absorbable suture. The wound was cleaned and dried and dressed with the appropriate dressing. The drapes were broken down. The patient was gently rolled back onto their hospital bed being careful to maintain their cervical spine and good neutral alignment and position. They were woken up by anesthesia, extubated, and brought to the recovery room in good stable condition. The patient will be admitted to the hospital for appropriate postoperative care, medical management and monitoring. We will continue to follow them closely about the postoperative course.
--- NOTE | 2022-10-30 11:52 | FL ---
Intraoperative/procedural fluoroscopic services were provided. Total fluoroscopy time is 20 seconds w ith a total of 0 submitted images to PACS. Please see the operative/procedural note for further detai ls.
[2022-10-30] MEDS: SODIUM CHLORIDE 0.9% 1,000 ML IV SCH (14:28)
[2022-10-30] MEDS: atenoloL 25 MG TAB PO SCH (20:16)
[2022-10-31] MEDS: SODIUM CHLORIDE 0.9% 1,000 ML IV SCH (05:48)
[2022-10-31 07:50] VITALS: BP 97/46; PULSE 76; RESP 17; TEMP 98.9
[2022-10-31] MEDS ORDERED: CHOLECALCIFEROL 25 MCG (1000 IU) TABLET PO SCH (09:00)
[2022-10-31] MEDS ORDERED: SENNOSIDES-DOCUSATE SODIUM 1 EACH TAB PO SCH (09:00)
[2022-10-31] MEDS ORDERED: MAGNESIUM OXIDE 400 MG TAB PO SCH (09:00)
[2022-10-31] MEDS: LACTATED RINGERS 1,000 ML IV SCH (09:33)
[2022-10-31 10:20] LABS: Basophils # (A) 0.05 X 10*3/uL (0.00-0.10); Basophils % (A) 0.4 %; Eosinophils # (A) 0.01 X 10*3/uL (0.04-0.35); Eosinophils % (A) 0.1 %; HCT 32.3 % (37.2-46.3); HGB 9.8 g/dL (12.0-15.0); Immature Grans, Automated 0.3 %; Lymphocytes # (A) 0.96 X 10*3/uL (0.90-5.00); MCH 29.1 pg (27.0-32.0); MCHC 30.3 g/dL (32.0-37.0); MCV 95.8 fL (80.0-97.0); Monocytes # (A) 1.33 X 10*3/uL (0.20-1.00); Monocytes % (A) 11.1 %; NRBC Per 100 WBC 0 /100 WBCS (0.0-0.0); Neutrophils # (A) 9.59 X 10*3/uL (1.80-7.70); Neutrophils % (A) 80.1 %; Platelet Count 199 X 10*3/uL (140-440); RBC 3.37 X 10*6/uL (4.10-5.20); WBC 11.97 X 10*3/uL (4.50-10.00)
[2022-10-31 10:25] LABS: African American GFR (CKD) 113.2 (60.0-200.0); Anion Gap 7.3 mmol/L (10.00-18.00); BUN/Creat Ratio 17.33 Ratio (12.00-20.00); Blood Urea Nitrogen 10.4 mg/dL (9.0-27.0); Calcium 8.4 mg/dL (8.7-10.3); Carbon Dioxide 26.7 mmol/L (20.0-27.5); Non-African American GFR(CKD) 97.7 (60.0-200.0); Potassium 3.7 mmol/L (3.5-5.5)
[2022-10-31] MEDS: atenoloL 25 MG TAB PO SCH (10:43)
--- NOTE | 2022-10-31 10:54 | P.DS ---
Providers Date of admission: 10/30/22 Attending physician: Juan Mcpherson Consults: 10/30/22 11:37 Consult Physician Routine Consulting Provider: Harsh Wagner Reason/Comments: Medical management Do you want consulting provider notified?: Yes Primary care physician: Harsh Wagner [place] [facility] Course: The patient presented on the day of admission as per their operative note. She underwent minimally invasive decompression and fusion L4 5 L5-S1 for her grade 3 spondylolisthesis with spinal stenosis low-back pain and lower extremity radiculopathy. Patient feels that she is making good progress. She feels her legs are doing well. Her pain control with oral medications. She has been up out of bed and voiding freely. She is tolerating her soft diet. She is passing gas. Physical Exam The incision site is clean dry and intact. There is no erythema no drainage. There is no purulence no evidence of infection. Her dressing site is clear. There is no drainage at all. There is no erythema Abdomen soft and nontender. Chest has good excursion with deep inspiration and expiration. The patient has active and passive range of motion intact at the upper and lower extremities. There is no acute change in neurologic status. She has sustained dorsal to plantar flexion and EHL intact Hospital Course Postoperative day #1 status post minimally invasive decompression fusion at L4 5 L5-S1 for her grade 3 spondylolisthesis at L5-S1 with stenosis L4 5 and L5-S1 with disc degeneration and lower extremity radiculopathy. Patient feels she is making good progress. The patient has been making good progress postoperatively. They have completed the prophylactic antibiotics without any signs or symptoms of infection. The patient has been able to advance their diet, and is tolerating diet adequately. The pain was initially controlled with IV medications and is now controlled appropriately with oral medications. The patient has been able to increase their mobilization. The patient has progressed appropriately. I think they are in good stable condition for discharge today. They will be sent home with appropriate prescriptions. I answered their questions to the best of my ability in a language that they can understand and they are agreeable with the plan. They will follow up as directed in approximately 2 weeks or sooner if she is having a problem. Patient Condition at Discharge: Good Plan - Discharge Summary Discharge Rx Participant: No New Discharge Prescriptions: New traMADol HCL 50 mg PO Q6H PRN #28 tab PRN Reason: Pain No Action atenoloL [Tenormin] 25 mg PO BID Cholecalciferol [Vitamin D3] 1,000 unit PO DAILY Magnesium Oxide [Mag-Ox] 250 mg PO DAILY Ibuprofen [Motrin] 800 mg PO Q8H PRN PRN Reason: Pain Cider Vinegar [Apple Cider Vinegar] 300 mg PO DAILY Acetaminophen [Tylenol 8 Hour] 650 mg PO Q8H PRN PRN Reason: Pain Discharge Medication List atenoloL [Tenormin] 25 mg PO BID 03/15/14 [History] Cholecalciferol [Vitamin D3] 1,000 unit PO DAILY 03/20/18 [History] Acetaminophen [Tylenol 8 Hour] 650 mg PO Q8H PRN 10/24/22 [History] Cider Vinegar [Apple Cider Vinegar] 300 mg PO DAILY 10/24/22 [History] Ibuprofen [Motrin] 800 mg PO Q8H PRN 10/24/22 [History] Magnesium Oxide [Mag-Ox] 250 mg PO DAILY 10/24/22 [History] traMADol HCL 50 mg PO Q6H PRN #28 tab 10/31/22 [Rx] Follow up Appointment(s)/Referral(s): Harsh Wagner DO [Primary Care Provider] - 1 Week Juan Mcpherson DO [Doctor of Osteopathic Medicine] - 2 Weeks Patient Instructions/Handouts: *Surgery [facility] - (Anesthesia) Discharge Instructions Outpatient Surgery, *[facility] - Scopalamine Patch Instructions Activity/Diet/Wound Care/Special Instructions: Keep site clean. May shower with waterproof Tegaderm intact. Do not soak in a tub. After 72 hours postoperatively, patient May remove dressing and then may shower with area uncovered. Leave glue intact and allow it to fray off on its own. May ambulate as tolerated. Avoid heavy or rigorous activity. No repetitive bending twisting or lifting. No overhead work. Discharge Disposition: HOME SELF-CARE
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
[2022-10-31] MEDS ORDERED: PANTOPRAZOLE 40 MG/10 ML VIAL IVP SCH (14:15)
== END 2022-10-31 16:20 | disposition home or self-care (01) ==
LOC: OR 06:33 → 5NMEDONC 13:39 → OR 10-31 16:20
PROVIDERS: ATTEND Orthopaedic Surgery Orthopaedic Surgery of the Spine
DX: M51.16 Intervertebral disc disorders with radiculopathy, lumbar region (principal); M48.07 Spinal stenosis, lumbosacral region; M43.17 Spondylolisthesis, lumbosacral region; M16.12 Unilateral primary osteoarthritis, left hip; I10 Essential (primary) hypertension; E78.5 Hyperlipidemia, unspecified; Z88.5 Allergy status to narcotic agent; Z82.49 Family history of ischemic heart disease and other diseases of the circulatory system
CPT/HCPCS: 97162; 86900; 86901; 80048; 85025; 86850; 72100; 22853; 63052; 22633; 20930; 20936; J0690 ×2; J2405

== ENCOUNTER → 2023-07-29 | Outpatient (CLI) | payer BC ==
--- NOTE | 2023-07-29 12:18 | CT ---
EXAMINATION TYPE: CT abdomen pelvis wo con DATE OF EXAM: 07/29/2023 COMPARISON: 02/04/2019 HISTORY: 63 year-old female N2 0.0, kidney calculus, bilateral flank pain, Bilateral flank pain, hx r enal stones CT DLP: 829.60 mGycm. Automated exposure control for dose reduction was used. TECHNIQUE: Contiguous axial scanning of the abdomen and pelvis without IV contrast. Coronal and sagit david reconstructions performed. FINDINGS: LUNG BASES: Heart upper limits of normal in size without pericardial effusion. Some streaky atelectas is or scarring in both lower lungs, similar to 2019. No pleural effusion. LIVER/GB: Liver borderline enlarged at 17.8 cm with mild low-attenuation changes ingesting some mild fatty infiltration. Cholecystectomy clips. PANCREAS: No significant abnormality is seen. SPLEEN: No significant abnormality is seen. ADRENALS: 2.8 cm lipid rich left adrenal adenoma with attenuation of -12 Hounsfield units. Measured 2 .7 cm in 2019. Right adrenal gland within normal limits. KIDNEYS: A few benign renal cortical cysts which have minimally fluctuated since 2019. Measuring up t o 1.7 cm mid left kidney versus 1.2 cm, previously. No nephrolithiasis or hydronephrosis is seen. BOWEL: No significant abnormality is seen. Mild stool in the right side of the abdomen. Normal appen sonia. No pericolonic inflammatory change. LYMPH NODES: No significant abnormality is seen. OTHER: No significant abnormality is seen. No free fluid or free air. Mild atherosclerotic calcificat ions infrarenal abdominal aorta. Tiny fatty umbilical hernia. PELVIS: Pelvic floor relaxation. Bladder partially distended. Uterus surgically absent. Numerous pelv ic phleboliths. 9 mm left external iliac chain lymph node remains unchanged. No abnormal fluid collec tion in the pelvis. BONES: Moderate degenerative change of both hips. Postsurgical change of L4-S1 posterior and interbody fusion. Fixed grade 2 anterolisthesis L5-S1 seco ndary to pre-existing pars defects. Mild superior end plate deformity T12 is unchanged. Large superior and plate Schmorl's node at L3 has developed in the interval. No surrounding soft tissue swelling. Superior endplate fracture of T9 is new from 2019 and there is surrounding paravertebral soft tissue swelling noted. This results in 40% overall height loss. IMPRESSION: 1. Superior endplate fracture of T9 is new from 2019 and there is some surrounding paravertebral soft tissue swelling noted suggesting a more acute to subacute fracture. Correlate for focal pain at this level. 40% overall height loss. 2. Mild hepatic steatosis. 3. Benign 2.8 cm lipid rich left adrenal adenoma. 4. No nephrolithiasis or hydronephrosis. 5. Pelvic floor relaxation.
== END | disposition home or self-care (01) ==
LOC: RADCTMAIN 08:42
PROVIDERS: ATTEND Family Medicine
DX: N20.0 Calculus of kidney (principal); K76.0 Fatty (change of) liver, not elsewhere classified; D35.02 Benign neoplasm of left adrenal gland; S22.070D Wedge compression fracture of T9-T10 vertebra, subsequent encounter for fracture with routine healing; N81.89 Other female genital prolapse
CPT/HCPCS: 74176

== ENCOUNTER → 2023-10-09 | Outpatient (CLI) | payer BC ==
--- NOTE | 2023-10-09 15:08 | NM ---
EXAMINATION TYPE: NM bone scan whole body DATE OF EXAM: 10/09/2023 COMPARISON: NONE HISTORY: Degenerative disc disorders Delayed whole-body scanning was performed following the injection of 25.5 mCi Tc 99m MDP. Images wer e acquired 3 hours post injection. FINDINGS: There is increased uptake in the region of T9 and posterior right T8 and T7 levels. Posttraumatic and metastatic disease should be considered. Prior compression is evident at T9 on the 07/29/2023 CT exa m. There is increased uptake within the sacral alar. Plain film correlation recommended. Metastasis in t rauma could be considered. There is increased uptake throughout multiple appendicular joint spaces including the bilateral wrist s, bilateral hands, right knee, bilateral shoulders and to lesser degree, bilateral hips and bilatera l ankles most likely on the basis of degenerative changes. IMPRESSION: 1. Abnormal uptake in the region of T9 could be related to prior trauma or metastatic disease. 2. Increased uptake within the sacral ala. Trauma on metastasis could be considered. Consider plain f ilm correlation.
== END | disposition home or self-care (01) ==
LOC: RADNMMAIN 09:49
PROVIDERS: ATTEND Orthopaedic Surgery Orthopaedic Surgery of the Spine
DX: M43.16 Spondylolisthesis, lumbar region (principal); M51.16 Intervertebral disc disorders with radiculopathy, lumbar region; M48.062 Spinal stenosis, lumbar region with neurogenic claudication; Z48.89 Encounter for other specified surgical aftercare; E66.9 Obesity, unspecified; M51.14 Intervertebral disc disorders with radiculopathy, thoracic region; M96.0 Pseudarthrosis after fusion or arthrodesis; M16.0 Bilateral primary osteoarthritis of hip; S22.070D Wedge compression fracture of T9-T10 vertebra, subsequent encounter for fracture with routine healing; S32.030D Wedge compression fracture of third lumbar vertebra, subsequent encounter for fracture with routine healing; F40.240 Claustrophobia; X58.XXXD Exposure to other specified factors, subsequent encounter; Z98.1 Arthrodesis status
CPT/HCPCS: 78306; A9503

== ENCOUNTER → 2023-10-20 | Outpatient (CLI) | payer BC ==
--- NOTE | 2023-10-20 08:27 | XR ---
EXAMINATION TYPE: XR chest 2V DATE OF EXAM: 10/20/2023 COMPARISON: 10/04/[address] 07/29/2023 HISTORY: 63 year-old female Z01.818, presurgical screening TECHNIQUE: Frontal and lateral views FINDINGS: Heart normal size. Aorta and pulmonary vasculature are within normal limits. Some strandy atelectasis at the right base. Mild anterior wedged in the follow-up in the interval within the lower thoracic s pine, though, unchanged from 07/29/2023. IMPRESSION: No acute cardiopulmonary process. Chronic T9 anterior wedge deformity.
[2023-10-20 09:18] LABS: INR 0.9 (<1.2); Prothrombin Time 10.5 sec (10.0-12.5)
[2023-10-20 14:58] LABS: BUN/Creat Ratio 18.14 Ratio (12.00-20.00); Blood Urea Nitrogen 12.7 mg/dL (9.0-27.0); Carbon Dioxide 27.8 mmol/L (21.6-31.8); Chloride 101 mmol/L (96-109); Glucose 105 mg/dL (70-110); Potassium 4.2 mmol/L (3.5-5.5); Sodium 140 mmol/L (135-145)
[2023-10-20 15:08] LABS: Basophils # (A) 0.05 X 10*3/uL (0.00-0.10); Basophils % (A) 0.6 %; Eosinophils # (A) 0.19 X 10*3/uL (0.04-0.35); Eosinophils % (A) 2.4 %; HCT 40.1 % (37.2-46.3); HGB 12.6 g/dL (12.0-15.0); Lymphocytes % (A) 23.8 %; MCH 28.6 pg (27.0-32.0); MCHC 31.4 g/dL (32.0-37.0); MCV 91.1 FL (80.0-97.0); Mean Platelet Volume 10.3 FL (9.5-12.2); Monocytes # (A) 0.68 X 10*3/uL (0.20-1.00); Monocytes % (A) 8.5 %; NRBC Per 100 WBC 0 X 10*3/uL (0.00-0.01); Neutrophils # (A) 5.14 X 10*3/uL (1.80-7.70); Neutrophils % (A) 64.3 %; Platelet Count 262 X 10*3/uL (140-440); RDW 13.9 % (11.5-14.5); WBC 7.99 X 10*3/uL (4.50-10.00)
[2023-10-20 17:01] LABS: Appearance,Urine Clear (Clear); Bilirubin,Urine Negative (Negative); Blood,Urine Negative (Negative); Color,Urine Yellow (Yellow); Ketones,Urine Negative (Negative); Nitrite,Urine Negative (Negative); PH, Urine 7.5; Urobilinogen,Urine 0.2 E.U./DL
== END | disposition home or self-care (01) ==
LOC: LABPAT 07:17
PROVIDERS: ATTEND Orthopaedic Surgery Orthopaedic Surgery of the Spine
DX: Z01.812 Encounter for preprocedural laboratory examination (principal); Z22.322 Carrier or suspected carrier of Methicillin resistant Staphylococcus aureus; M48.54XA Collapsed vertebra, not elsewhere classified, thoracic region, initial encounter for fracture; M43.10 Spondylolisthesis, site unspecified
CPT/HCPCS: 71046; 80048; 81003; 85025; 85610; 85730; 86850; 86900; 86901; 87070; 93005

== ENCOUNTER 2023-10-27 08:33 | Inpatient (IN) | payer BC ==
[~2023-10-27 08:33] MED LIST changes: +LIDOCAINE 1% (10MG/ML) FOR IV START INTRADERMA PRN; +ONDANSETRON 4 MG/2 ML VIAL IVP ONE; +droPERidol 5 MG/2 ML VIAL IVP ONE; +fentaNYL (PF) 50 MCG/ML 2 ML AMP IV PRN
[2023-10-27] MEDS ORDERED: diphenhydrAMINE 50 MG/ML 1 ML VIAL ONE (09:18)
[2023-10-27] MEDS: LACTATED RINGERS 1,000 ML IV SCH ×2 (09:31→10:29)
[2023-10-27] MEDS ORDERED: SCOPOLAMINE 1 MG/72 HR PATCH TRANSDERM ONE (09:32)
[2023-10-27] MEDS ORDERED: FAMOTIDINE 20 MG/2 ML VIAL IVP ONE (09:32)
[2023-10-27] MEDS ORDERED: MIDAZOLAM 2 MG/2 ML VIAL IVP ONE ×2 (09:32→10:12)
--- NOTE | 2023-10-27 10:28 | P.ANPRN ---
Procedure Note - Anesthesia - Invasive Line Right Arterial Line Time Out Performed: Yes Date of Procedure: 10/27/23 Time of Procedure: 10:11 Location of Patient: PreOp Preparation: Sterile Prep Arterial Line Location: Radial Ultrasound Used: Yes Purpose - Visualization and Identification of Vasculature: Yes Image Stored and Saved: Yes Narrative: Central line placement per sterile protocol utilized. AttemptX1
[2023-10-27] MEDS ORDERED: fentaNYL (PF) 50 MCG/ML 2 ML AMP ONE (11:25)
[2023-10-27] MEDS ORDERED: SUCCINYLCHOLINE CHLORIDE 200 MG/10 ML VIAL IV ONE (11:25)
[2023-10-27] MEDS ORDERED: ROCURONIUM 10 MG/ML (5 ML VIAL) IV ONE (11:25)
[2023-10-27] MEDS ORDERED: SUGAMMADEX SODIUM 200 MG/2 ML SDV IV ONE (11:25)
[2023-10-27] MEDS ORDERED: HYDROmorphone (PF) 1 MG/ML ONE (11:25)
[2023-10-27] MEDS ORDERED: KETAMINE HCL IN 0.9 % NACL 50 MG/5 ML SYRINGE ONE (11:25)
[2023-10-27] MEDS ORDERED: PROPOFOL 10 MG/ML 20 ML VIAL IV ONE (11:25)
[2023-10-27] MEDS ORDERED: MIDAZOLAM 2 MG/2 ML VIAL ONE (11:25)
[2023-10-27] MEDS ORDERED: LIDOCAINE 1% INJ 10MG/ML (20 ML MDV) ONE (11:25)
[2023-10-27] MEDS ORDERED: LACTATED RINGERS 1,000 ML IV ONE (13:30)
[2023-10-27] MEDS ORDERED: HYDROmorphone 1 MG/ML 1 ML SYRINGE IVP PRN (14:29)
[2023-10-27] MEDS ORDERED: HYDROmorphone 0.5 MG/0.5 ML SYRINGE IVP PRN (14:29)
[2023-10-27] MEDS ORDERED: BENZOCAINE/MENTHOL LOZENG 1 EACH LOZENGE MUCOUS MEM PRN (14:29)
[2023-10-27] MEDS ORDERED: SENNOSIDES-DOCUSATE SODIUM 1 EACH TAB PO PRN (14:30)
[2023-10-27] MEDS ORDERED: CYCLOBENZAPRINE 10 MG TAB PO PRN (14:30)
[2023-10-27] MEDS ORDERED: ONDANSETRON 4 MG/2 ML VIAL IVP PRN (14:30)
--- NOTE | 2023-10-27 14:40 | XR ---
Fluoroscopy History: SPONDYLOLISTHESIS L5-S1 Spondylolisthesis L5-S1. 45 secs FL. DAP 12.54
--- NOTE | 2023-10-27 14:46 | P.OP ---
Date of Procedure: 10/27/23 Preoperative Diagnosis: Nonunion of L5-S1 History of prior lumbar decompression and fusion L4-5 L5-S1 with posterior lateral decompression and fusion L4-5 L5-S1 and transforaminal interbody fusion L4-5 Recurrent low back pain Loosening of hardware S1 pedicle screws Postoperative Diagnosis: Same Anesthesia: GETA Pathology: none sent Condition: stable Disposition: PACU Description of Procedure: BRIEF OPERATIVE NOTE Preoperative Diagnosis:Nonunion of L5-S1 History of prior lumbar decompression and fusion L4-5 L5-S1 with posterior lateral decompression and fusion L4-5 L5-S1 and transforaminal interbody fusion L4-5 Recurrent low back pain Loosening of hardware S1 pedicle screws Postoperative Diagnosis:Nonunion of L5-S1 History of prior lumbar decompression and fusion L4-5 L5-S1 with posterior lateral decompression and fusion L4-5 L5-S1 and transforaminal interbody fusion L4-5 Recurrent low back pain Loosening of hardware S1 pedicle screws Procedure: Anterior lumbar interbody fusion at L5-S1 Anterior retroperitoneal approach done by Dr. Lara, to access L5-S1 Discectomy L5-S1 Placement of anterior body 8 mm cage at L5-S1 Use of allograft bone graft Application of anterior lumbar plate at L5 to cover the L5-S1 disc space over the interbody cage Surgeon: Dr. Mcpherson, and Dr. Jane Lara was able to provide the access for the anterior approach for the L5-S1 disc space via a retroperitoneal approach and was present for assistance during the anterior lumbar interbody fusion and placement of the interbody cage and for closure Street Light Repairer: Butch WALTER Anesthesia: General anesthesia per Dr. Connor Estimated blood loss: Approximately 50 cc Complications: None apparent Components implanted: Wilmot K2 M anterior interbody cage filled with DBX bone putty and a 26 mm anterior antikick plate with a screw at L5 Disposition: To recovery room in good stable condition. OPERATIVE INDICATIONS The patient is a very pleasant 63-year-old female who has had issues with her low back over the past several years. The patient had been treated conservatively and then ultimately underwent posterior lumbar interbody fusion and transforaminal interbody fusion with decompression L4-5 and L5-S1. She was very happy with his result initially. She felt great relief in her back and into her legs after that surgery. She went on to do well for most of the year. However toward the later aspect of the year she started having increasing pain in her lower back. She was found to have evidence of loosening at the screws at the pedicles of S1. At the time of her posterior surgery she was not able to have interbody device placement due to access issues at the L5-S1 space. We had a long discussion with her in regards to the source of her pain and her symptoms. We felt that she had a nonunion at L5-S1 and this was creating further pain for her at that level. She underwent further conservative treatment with bone stimulation and continued management however she was not achieving a solid fusion. Bone scan resulted in positive findings at the S1 space around the screws confirming the idea that the screws were loose and her symptoms were coming from that area. We felt that she could have some benefit with further surgery to achieve solid fusion at that level. I felt that a good option for her would be anterior lumbar interbody fusion at L5-S1. We discussed the risk complications alternatives and benefits of the case. We discussed the need for an access surgeon. We discussed the possibility of abdominal troubles issues with anterior surgery issues with the nerves around the area at the L5-S1 disc space as well as possibility the risk of anesthesia risk of issues with her heart lungs and the possibility that surgery may not alleviate her symptoms was explained. We answered all the patient's questions about her ability limb she can understand and she like to proceed with surgical intervention and signed informed consent. Our plan all along was to plan for using an anterior access surgeon we arranged with Dr. Lara for the surgery as well as ourselves for the lumbar interbody fusion at L5-S1 OPERATIVE SUMMARY After discussing all the risks, patient alternatives and benefits at length, the patient elected to proceed with surgical intervention, signed informed consent, and presented for their procedure. The patient was seen and examined in the preoperative holding area and the surgical site was marked. The patient was given antibiotics and brought to the operating room. She was seen by myself as well as by Dr. Lara. The anterior approach and the anterior surgery will be dictated by Dr. Lara who was able to pry the anterior access to L5-S1. The patient was positioned on the operating room table in a supine position being careful to pad any bony prominences and pressure points. The patient was sedated and intubated by anesthesia in standard fashion. Once the airway and C-spine were stabilized the patient's arms were padded and tucked at her side, with her shoulders gently taped. The head was placed in a donut pad with the neck in good neutral alignment and position. We were careful to maintain the patient's cervical spine and good neutral alignment and position throughout. The patient was prepped and draped in a normal standard fashion. An appropriate timeout and keystone protocol performed. We were able to proceed with the surgery. The anterior approach was accomplished using appropriate retractors and technique as per the anterior approach dictation. Once we had the L5-S1 disc space appropriately identified with C arm and exposed appropriately, we dissected down to the anterior surface of the vertebral bodies. Intraoperative x-ray was taken which showed a marker at the appropriate level. With the appropriate level positively confirmed, we were able to proceed with discectomy at the appropriate levels of L5-S1. All of the operative levels were exposed appropriately. T The wound was copiously irrigated and suctioned dry as had been done periodically throughout the case. At the appropriate level/levels, I established an annulotomy with an 11 blade scalpel. A discectomy was performed with a combination of pituitary rongeurs, curettes, and Kerrison rongeurs. I was able to get good discectomy and remove the endplates appropriately to get good raw stable lightly bleeding bone at L5-S1. The depth with measured appropriately. I was able to size for the appropriate size interbody graft. We checked position on C arm which had good alignment good position. The wound was irrigated and suctioned dry the graft was prepared filled with allograft bone graft and malleted into position. It had good alignment and position with the anterior surface flush with the anterior surface of the vertebral bodies. The interbody graft had good alignment good position with good fill and appeared overall stable. With the grafts intact, I was able to measure and contour and appropriate sized plate. The plate was positioned at the midline over the appropriate levels of L5-S1. Screw holes were established with a sharp awl. A screw was placed in good alignment and position with good bony purchase. The construct was checked and found to be stable. I tried to pull the plate and there was no evidence of any looseness or ability to displace. Intraoperative x-ray was taken which showed good alignment and position of the implants at the appropriate levels of L5-S1. There was no evidence of any dural tear or leak. Good hemostasis was m aintained. The wound was copiously irrigated and suctioned dry as had been done periodically throughout the case. There is no evidence of any bleeding. Vascular surgery was available to close the appropriate deep layers. The subcutaneous tissue was closed. The subcuticular tissue was closed with absorbable suture. The wound was cleaned and dried and dressed appropriately. The patient was woken up by anesthesia, extubated, transferred back gently to their hospital bed and brought to the recovery room in good stable condition. The patient will be admitted to the hospital for appropriate postoperative care, medical management and monitoring. We will continue to follow them closely about the postoperative course.
[2023-10-27] MEDS ORDERED: HYDROmorphone 0.5 MG/0.5 ML SYRINGE IVP ONE (14:54)
[2023-10-27] MEDS ORDERED: SODIUM CHLORIDE 0.9% 1,000 ML IV ONE ×2 (15:52)
[2023-10-27] MEDS: SODIUM CHLORIDE 0.9% 1,000 ML IV SCH (19:27)
--- NOTE | 2023-10-27 19:50 | P.OP ---
Date of Procedure: 10/27/23 Preoperative Diagnosis: Nonunion of L5-S1 History of prior lumbar decompression and fusion L4-5 L5-S1 with posterior lateral decompression and fusion L4-5 L5-S1 and transforaminal interbody fusion L4-5 Recurrent low back pain Loosening of hardware S1 pedicle screws Postoperative Diagnosis: Nonunion of L5-S1 History of prior lumbar decompression and fusion L4-5 L5-S1 with posterior lateral decompression and fusion L4-5 L5-S1 and transforaminal interbody fusion L4-5 Recurrent low back pain Loosening of hardware S1 pedicle screws Procedure(s) Performed: Retroperitoneal approach for L5-S1 Anterior lumbar interbody fusion Anesthesia: SHIMA Surgeon: Osiel Lara Estimated Blood Loss (ml): 20 Pathology: none sent Condition: stable Disposition: PACU Description of Procedure: Indication for procedure: The patient is a 63-year-old female with a longstanding history of back pain and previous back surgeries. Patient was evaluated by Dr. Mcpherson and after thorough work-up and imaging he felt the patient required an anterior and posterior fusion of the L5-S1 disc space. Mary Beth ent was seen preoperatively in my office and extensive discussion was had about risks and benefits of the procedure. Risks discussed included bleeding, infection, possible bowel, bladder, ureteral injuries, possible nerve damage, paresthesias, hernias, lymph leaks, tear or venous thrombosis requiring thrombectomy or bypass, and possibility of retrograde ejaculation were all discussed. Patient understood these risks, alternatives to treat wished to proceed. Operative narrative: Patient was brought to the operating room and placed in a supine position after appropriate anesthetic was performed per the anesthesiologist. IV antibiotics were given prior to incision. Abreu catheter was placed. Preoperative localization of the disc space was carried out with fluoroscopy. The abdomen was prepped and draped in the usual sterile fashion. Timeout was performed in normal fashion with all parties in agreement. A phannensteil incision was then created with a 10 blade scalpel and dissection was carried down through the subcutaneous tissue. Left anterior rectus sheath was located and identified and then incised. The left rectus abdominis muscle was then mobilized from the midline laterally. The retroperitoneum was then entered in the left lower quadrant. Peritoneal contents were then swept toward the midline. A Sherlyn retractor was then placed in the peritoneum was retracted medially. Bipolar cautery was then utilized to free up the soft tissues between the iliac veins. The iliac artery, vein were located and spared. Meticulous dissection was carried around this area and the left iliac vein was retracted laterally to allow for better visualization of the L5-S1 space. Middle sacral vessels were then located and dissected free and were clipped and ligated. Good visualization of the L5-S1 disc space was viewed and confirmed with fluoroscopy. A pin was placed within the disc space which was confirmed on fluoroscopy and shown to be in good position. At that time Dr. Mcpherson performed a discectomy, and cage placement at the L5-S1 disc level. Please see his dictation for further details. Once completed the area was inspected for hemostasis. Hemostasis was ensured. There was no active bleeding or any signs of injury. All retractors were then removed and the incision was closed. The anterior rectus sheath was reapproximated with 2-0 PDS suture in a running fashion. Subcutaneous tissue was reapproximated with 3-0 Vicryl. Skin was closed with 4-0 Monocryl. All sponges and instruments were accounted for. I was present in the room for the entire procedure and assisted Dr. Mcpherson with his portion of the procedure that included vessel and soft tissue retraction to facilitate implant placement.
[2023-10-27] MEDS: atenoloL 25 MG TAB PO SCH ×2 (20:30→20:36)
[2023-10-27] MEDS: HYDROcodone/APAP 5-325MG 1 EACH TAB PO PRN (20:36)
[2023-10-28 02:54] VITALS: TEMP 98.3
[2023-10-28] MEDS: SODIUM CHLORIDE 0.9% 1,000 ML IV SCH (04:38)
[2023-10-28] MEDS: LACTATED RINGERS 1,000 ML IV SCH ×2 (05:56)
[2023-10-28] MEDS: HYDROcodone/APAP 5-325MG 1 EACH TAB PO PRN (06:39)
[2023-10-28 08:47] VITALS: BP 101/59; PULSE 60; RESP 18
[2023-10-28] MEDS ORDERED: CHOLECALCIFEROL 25 MCG (1000 IU) TABLET PO SCH (09:00)
[2023-10-28] MEDS ORDERED: SENNOSIDES-DOCUSATE SODIUM 1 EACH TAB PO SCH (09:00)
[2023-10-28] MEDS ORDERED: MAGNESIUM OXIDE 400 MG TAB PO SCH (09:00)
[2023-10-28 09:03] LABS: Basophils # (A) 0.03 X 10*3/uL (0.00-0.10); Basophils % (A) 0.3 %; Eosinophils # (A) 0.13 X 10*3/uL (0.04-0.35); Eosinophils % (A) 1.2 %; HCT 33.9 % (37.2-46.3); HGB 10.2 g/dL (12.0-15.0); Lymphocytes # (A) 0.97 X 10*3/uL (0.90-5.00); Lymphocytes % (A) 9.3 %; MCH 28.7 pg (27.0-32.0); MCHC 30.1 g/dL (32.0-37.0); MCV 95.2 FL (80.0-97.0); Mean Platelet Volume 10.1 FL (9.5-12.2); Monocytes # (A) 1.02 X 10*3/uL (0.20-1.00); Monocytes % (A) 9.7 %; NRBC Per 100 WBC 0 X 10*3/uL (0.00-0.01); Neutrophils # (A) 8.28 X 10*3/uL (1.80-7.70); Neutrophils % (A) 79.1 %; Platelet Count 197 X 10*3/uL (140-440); RBC 3.56 X 10*6/uL (4.10-5.20); RDW 14.4 % (11.5-14.5); WBC 10.47 X 10*3/uL (4.50-10.00)
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
[2023-10-28] MEDS: atenoloL 25 MG TAB PO SCH (09:41)
[2023-10-28] MEDS ORDERED: PANTOPRAZOLE 40 MG/10 ML VIAL IVP SCH (09:45)
[2023-10-28 09:46] LABS: BUN/Creat Ratio 16.29 Ratio (12.00-20.00); Blood Urea Nitrogen 11.4 mg/dL (9.0-27.0); Calcium 8.2 mg/dL (8.7-10.3); Carbon Dioxide 26.4 mmol/L (21.6-31.8); Chloride 109 mmol/L (96-109); Glucose 112 mg/dL (70-110); Potassium 3.9 mmol/L (3.5-5.5); Sodium 145 mmol/L (135-145)
--- NOTE | 2023-10-28 11:11 | P.PN ---
Subjective Progress Note Date: 10/28/23 Patient is seen and examined today as a postop follow-up. She is postop day #1 for retroperitoneal approach for L5-S1 anterior lumbar interbody fusion. Also performed by Dr. Morrissey anterior lumbar interbody fusion L5-S1, discectomy L5-S1, placement of anterior body 8 mm cage, bone graft, and implication of anterior lumbar plate at L5 to cover the L5-S1 disc space over the interbody cage. Overall patient is doing well. WBC 10.4 hemoglobin 10.2 platelet count 197,000 sodium 145 potassium 3.9 BUN 11 creatinine 0.7. Pain seems to be controlled. Ortho will continue to follow patient. Objective - Vital Signs Vital signs: Vital Signs Temp 98.3 F 10/28/23 02:16 Pulse 54 L 10/28/23 02:16 Resp 20 10/28/23 02:16 BP 82/45 10/28/23 02:16 Pulse Ox 96 10/28/23 02:16 FiO2 Intake & Output 10/27/23 10/28/23 10/28/23 18:59 06:59 18:59 Intake Total 1901 480 Output Total 425 430 Balance 1476 50 Weight 81.8 kg Intake: IV 1901 Oral 480 Output: Urine 375 430 Estimated Blood Loss 50 Other: Voiding Method Indwelling Catheter - Exam General appearance: The patient is alert, oriented, appears in no acute distress. HET: Head is normocephalic and atraumatic. Pupils are equal and reactive. Neck: Supple. Heart: Regular. Lungs: Equal expansion, normal respiratory effort. Abdomen: Soft, nondistended. Extremities: Normal skin color and turgor. Neurological: No focal deficits. - Labs CBC & Chem 7: 10/28/23 05:31 10/28/23 05:31 Assessment and Plan Assessment: 1. 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 Postop day #1 anterior retroperitoneal approach for L5-S1 anterior lumbar interbody fusion Plan: From a vascular standpoint patient is stable for discharge. Rest of the orthopedic management will be done by orthopedic surgeon. Rest of medical management per primary medical team. Thank you for this consultation we will sign off at this time. Please do not hesitate to call us if further needed. The impression and plan of care has been dictated as directed. Dr.Cuppari I performed a history and examination of this patient, discussed the same with the dictator. I agree with the dictator's note ,documented as a scribe. Any additional findings or plans will be noted.
== END 2023-10-28 14:13 | disposition home or self-care (01) | DRG 454 ==
LOC: 2ORMAIN 08:33 → 4SSUR 16:44
PROVIDERS: ADMIT Orthopaedic Surgery Orthopaedic Surgery of the Spine; ATTEND Orthopaedic Surgery Orthopaedic Surgery of the Spine
PROC: 0ST40ZZ Resection of Lumbosacral Disc, Open Approach (ICD-10-PCS; 2023-10-27)
PROC: 0QU00KZ Supplement Lumbar Vertebra with Nonautologous Tissue Substitute, Open Approach (ICD-10-PCS; 2023-10-27)
PROC: 0SG30A0 Fusion of Lumbosacral Joint with Interbody Fusion Device, Anterior Approach, Anterior Column, Open Approach (ICD-10-PCS; principal; 2023-10-27 10:15)
PROC: 0SG30K1 Fusion of Lumbosacral Joint with Nonautologous Tissue Substitute, Posterior Approach, Posterior Column, Open Approach (ICD-10-PCS; 2023-10-27 10:15)
DX: T84.296A Other mechanical complication of internal fixation device of vertebrae, initial encounter (principal); M96.0 Pseudarthrosis after fusion or arthrodesis; E66.01 Morbid (severe) obesity due to excess calories; I10 Essential (primary) hypertension; F41.9 Anxiety disorder, unspecified; Y83.8 Other surgical procedures as the cause of abnormal reaction of the patient, or of later complication, without mention of misadventure at the time of the procedure; Y79.3 Surgical instruments, materials and orthopedic devices (including sutures) associated with adverse incidents; Z68.34 Body mass index [BMI] 34.0-34.9, adult; Z85.41 Personal history of malignant neoplasm of cervix uteri; Z82.61 Family history of arthritis; Z79.899 Other long term (current) drug therapy; Z88.5 Allergy status to narcotic agent; Z88.8 Allergy status to other drugs, medicaments and biological substances; Z86.79 Personal history of other diseases of the circulatory system; Z28.310 Unvaccinated for COVID-19; Z87.891 Personal history of nicotine dependence
CPT/HCPCS: 72100; 80048; 85025